=== PATIENT | male | born 1935 | race Caucasian/White ===

== ENCOUNTER 2017-12-12 05:59 | Day surgery (SDC) | payer MEDICARE, OTHER ==
--- NOTE | 2017-12-09 20:37 | HP ---
CC: Dr. Chisholm; Dr. Lawrence * ADMITTING HISTORY AND PHYSICAL: DATE OF ADMISSION: 12/12/17 ADMITTING DIAGNOSES: 1. Gross hematuria. 2. Bladder tumor. PLANNED PROCEDURE: Transurethral resection of bladder tumor and left stent insertion. SURGEON: Dr. Schuster. HISTORY OF PRESENT ILLNESS: Korey Dubois is an 82-year-old former smoker, who was evaluated for recurrent episodes of gross painless hematuria. Cystoscopy in my office revealed a large papillary tumor with an appearance consistent with superficial transitional cell carcinoma located in the bladder above the left ureteral orifice. CT urogram revealed no evidence of obstruction or involvement of the upper tracts and he is now being brought in for transurethral resection and temporary left stent insertion. PAST MEDICAL HISTORY: Significant for COPD and hypertension. PAST SURGICAL HISTORY: Significant for: 1. Appendectomy. 2. Bowel resection on 2 separate occasions for small bowel obstruction. 3. Surgery for diverticular abscess. 4. Left lung lower lobe resection for bronchiectasis. 5. Mastoidectomy. MEDICATIONS: On admission, include: 1. Aspirin 325 mg once a day. 2. Zestril 10 mg a day. 3. Hydrochlorothiazide 50 mg a day. 4. Pulmicort inhaler as needed. ALLERGIES AND INTOLERANCES: PENICILLIN and SULFA, and CHLORAMPHENICOL. SOCIAL HISTORY: Smoking history, he is a former smoker who quit in 1971 with a 40- to 89-[id number] smoking history prior to that. REVIEW OF SYSTEMS: He is otherwise in reasonably good health. There is no history of diabetes mellitus and he denies any chest pain. PHYSICAL EXAMINATION GENERAL: Reveals a pleasant elderly gentleman. VITAL SIGNS: Blood pressure is 126/78, pulse 64 per minute, oxygen saturation 98% on room air. LUNGS: Clear bilaterally. CARDIOVASCULAR: Regular rate and rhythm. S1, S2. ABDOMEN: Soft without masses. IMPRESSION: An 82-year-old former smoker with a large superficial-appearing bladder tumor causing recurrent episodes of gross hematuria. PLAN: Transurethral resection of bladder tumor and left stent insertion. [id number]/[facility] #: [id number] MTDD
[~2017-12-12 05:59] MED LIST: Buffered Lidocaine 0.9% SYRIN* 5 ML/SYR SYRINGE INTRADERM ONE; DiMENhydriNATE IV* 50 MG/ML VIAL IV PUSH PRN; Morphine INJ* 2 MG/ML 1 ML SYRINGE (TWO MG - NEW SYRINGE VERSION) IV PRN; Naloxone* 0.4 MG/ML 1 ML VIAL IV PRN; Ondansetron TAB* 4 MG PO ONE; PROCHLORPERAZINE INJ 5 MG/ML 2 ML VIAL IV PRN; fentaNYL* 50 MCG/ML 2 ML VIAL (100 MCG VIAL) IV PRN; oxyCODONE/Acetamin 5/325 MG* TAB PO PRN
[2017-12-12] MEDS ORDERED: Famotidine IV* 10 MG/ML 2 ML (20 mg) IV ONE (06:00)
[2017-12-12] MEDS ORDERED: Dexamethasone TAB* 4 MG PO ONE (06:00)
[2017-12-12] MEDS ORDERED: Ondansetron ODT TAB* 4 MG ONE (06:33)
[2017-12-12] MEDS ORDERED: Famotidine IV* 10 MG/ML 2 ML (20 mg) ONE (06:33)
[2017-12-12] MEDS ORDERED: Dexamethasone TAB* 4 MG ONE (06:33)
[2017-12-12] MEDS ORDERED: Levofloxacin 500 MG IVPREMIX(* 500 MG/100 ML BAG IVPB ONE (06:34)
[2017-12-12] MEDS ORDERED: Iohexol 180 (CONTRAST) 10 ML SDV IV ONE (07:06)
[2017-12-12] MEDS ORDERED: Midazolam* 1 MG/ML 5 ML VIAL (5 MG) ONE (07:26)
[2017-12-12] MEDS ORDERED: fentaNYL* 50 MCG/ML 2 ML VIAL (100 MCG VIAL) ONE ×2 (07:26→09:37)
[2017-12-12] MEDS ORDERED: KETAMINE HCL* 50 MG/ML 10 ML VIAL ONE (07:26)
[2017-12-12] MEDS ORDERED: Furosemide IV* 10 MG/ML 2 ML VIAL (20 MG) ONE (08:22)
[2017-12-12] MEDS ORDERED: Lidocaine 2% PF * 5 ML VIAL ONE (08:57)
[2017-12-12] MEDS ORDERED: Propofol* 10 MG/ML 20 ML BTL IV PUSH ONE (08:57)
[2017-12-12] MEDS ORDERED: Lidocaine 2% JELLY* 6 ML JELLY TOPICAL ONE (09:38)
--- NOTE | 2017-12-12 10:33 | RAD ---
CPT II Codes: G9500 Indication: Left ureteral stent placement. Fluoroscopic services provided for referring physician. 7 seconds of fluoroscopy time was used. 7 spot images demonstrates placement of a left ureteral stent. IMPRESSION: Fluoroscopic services provided for referring physician for left ureteral stent placement.
[2017-12-12 10:35] VITALS: BP 157/91
--- NOTE | 2017-12-13 00:46 | OP ---
CC: Dr. Warner Chisholm; Dr. Ricardo Schuster OPERATIVE REPORT: DATE OF OPERATION: 12/12/17. DATE OF : 33. SURGEON: Ricardo Schuster M.D. ANESTHESIOLOGIST: Dr. Ambriz. ANESTHESIA: Spinal. PRE-OP DIAGNOSES: 1. Gross hematuria. 2. Bladder cancer. POST-OP DIAGNOSES: 1. Gross hematuria. 2. Bladder cancer. OPERATIVE PROCEDURE: Cystoscopy, transurethral resection of large vascular bladder tumor (6 to 7 cm) , left retrograde pyelogram, and left stent insertion. COMPLICATIONS: None. OPERATIVE FINDINGS: Large vascular tumor occupying left lateral wall (appearance consistent with hig h-grade but superficial transitional cell carcinoma). STENT USED: 6-Australian stent, left ureter. POSTOPERATIVE CONDITION: Stable. ESTIMATED BLOOD LOSS: Approximately 100 to 150 mL. CATHETER: A 22-Australian Ulrich. INDICATIONS: Leonidas Dubois is an 82-year-old gentleman, who was evaluated for gross hematuria and noted to have a bladder tumor in the left lateral wall and close to the left side of the trigone of the bladder. DESCRIPTION OF PROCEDURE: After induction of spinal anesthesia, the patient was placed in dorsal lit hotomy position. Sequential compression devices were in place and functioning. Initial cystoscopy r evealed a normal-appearing urethra, a mild-to- moderately enlarged prostate. The bladder was examine d. There was a large tumor in the left lateral wall above and lateral to the left orifice with a lot of neovascularity adjacent to it. The tumor had an appearance of a high-grade but superficial trans itional cell carcinoma. In addition, there was a smaller satellite tumor just below the left orifice . The remainder of the bladder was unremarkable. Initially, left retrograde pyelogram was performed. There was no evidence of any persistent filling defects or obstruction, and a 6-Australian stent was introduced and positioned under fluoroscopy with goo d proximal and distal positioning obtained. Next, the resectoscope was introduced. The superficial part of the tumor was resected and sent for h istopathology. Deeper part of the tumor was carefully resected taking care not to perforate the bladder. At the end of the procedure, there was no remaining tumor and there was no evidence of bladder perforation and hemostasis appeared satisfactory. The refractive tissue was removed from the bladder using the Shar evacuator. A Ulrich catheter of 22-Australian was placed for bladder drainage. The patient tolerated th e procedure satisfactorily and was transferred back to recovery area in stable condition. [id number]/[facility] #: [id number]
== END 2017-12-12 11:18 | disposition home or self-care (01) ==
LOC: EDBD → OR 05:59 → MERGE 07:30 → OR 11:18
PROVIDERS: ATTEND Urology
DX: C67.2 Malignant neoplasm of lateral wall of bladder (principal); R31.0 Gross hematuria; Z87.891 Personal history of nicotine dependence; J44.9 Chronic obstructive pulmonary disease, unspecified; I10 Essential (primary) hypertension
CPT/HCPCS: 74420; 88305; A9270-GY; C1876; J1940; J1956; J2250; J2704; J3010; J8540

== ENCOUNTER → 2018-06-19 06:09 | Day surgery (SDC) | payer MEDICARE, OTHER ==
--- NOTE | 2018-06-08 07:32 | HP ---
CC: Dr. Mares; Dr. Lawrence * ADMITTING HISTORY AND PHYSICAL: DATE OF ADMISSION: 06/19/18 ADMITTING DIAGNOSIS: Bladder cancer. PLANNED PROCEDURE: Transurethral resection of bladder tumors and right stent insertion. SURGEON: Dr. Schuster. HISTORY OF PRESENT ILLNESS: Leonidas Dubois is an 82-year-old gentleman who had originally been evaluated and treated in December of 2017 for high-grade superficial bladder cancer. He had undergone transurethral resection followed by intravesical BCG treatments. Recent cystoscopy revealed multiple recurrent tumors, this time on the right side of the bladder. They all appear superficial on visual examination. PAST MEDICAL HISTORY: Significant for: 1. Superficial high-grade bladder cancer. 2. Hypertension. 3. COPD. PAST SURGICAL HISTORY: Significant for left lung lower lobe resection for bronchiectasis, mastoidectomy, multiple bowel surgeries, appendectomy, and transurethral resection of bladder tumor in December of 2017. MEDICATIONS ON ADMISSION: 1. Zestril 10 mg daily. 2. Aspirin 325 mg daily. 3. Hydrochlorothiazide 50 mg daily. 4. Pulmicort inhaler p.r.n. ALLERGIES: PENICILLIN, SULFA, and CHLORAMPHENICOL. SOCIAL HISTORY: Smoking History: He has a 42 to 50-pack year smoking history and he quit over 30 years ago. PHYSICAL EXAMINATION GENERAL: Reveals a pleasant elderly gentleman. VITAL SIGNS: Blood pressure is 140/82, pulse 66 per minute, oxygen saturation 98% on room air. LUNGS: Clear bilaterally. CARDIOVASCULAR EXAM: Regular rate and rhythm. S1, S2. ABDOMEN: Soft without masses. IMPRESSION: A 82-year-old former smoker with recurrent superficial bladder cancer. PLAN/RECOMMENDATIONS: Planned procedure is transurethral resection of bladder tumors and right stent insertion. [id number]/[facility] #: [id number] MTDD
[~2018-06-19 06:09] MED LIST changes: -Buffered Lidocaine 0.9% SYRIN* 5 ML/SYR SYRINGE INTRADERM ONE; +Buffered Lidocaine 1% SYRIN* 1 ML/SYRINGE INTRADERM ONE; -DiMENhydriNATE IV* 50 MG/ML VIAL IV PUSH PRN; +Furosemide IV* 10 MG/ML 2 ML VIAL (20 MG) ONE; +Iohexol 180 (CONTRAST) 10 ML SDV IV ONE; +Lactated Ringers 1000 ML Bag* 1,000 ML IV SCH; +Levofloxacin 500 MG IVPREMIX(* 500 MG/100 ML BAG IVPB ONE; +Lidocaine 2% JELLY* 6 ML JELLY TOPICAL ONE; +Midazolam* 1 MG/ML 5 ML VIAL (5 MG) ONE; -Morphine INJ* 2 MG/ML 1 ML SYRINGE (TWO MG - NEW SYRINGE VERSION) IV PRN; +Ondansetron INJ* 2 MG/ML VIAL IV PRN; -Ondansetron TAB* 4 MG PO ONE; -PROCHLORPERAZINE INJ 5 MG/ML 2 ML VIAL IV PRN; -fentaNYL* 50 MCG/ML 2 ML VIAL (100 MCG VIAL) IV PRN; +fentaNYL* 50 MCG/ML 2 ML VIAL (100 MCG VIAL) ONE; +oxyCODONE/Acetamin 5/325 MG* TAB ONE
[2018-06-19] MEDS: fentaNYL* 50 MCG/ML 2 ML VIAL (100 MCG VIAL) IV PRN ×4 (09:53→10:25)
--- NOTE | 2018-06-19 11:55 | OP ---
CC: Dr. Nadira Mares; Dr. Ena Lawrence * DATE OF OPERATION: 06/19/18 - [facility] DATE OF : 33 SURGEON: Ricardo Schuster MD ANESTHESIOLOGIST: Dr. Sorenson. ANESTHESIA: Spinal. PRE-OP DIAGNOSIS: Bladder cancer. POST-OP DIAGNOSIS: Bladder cancer. OPERATIVE PROCEDURE: 1. Cystoscopy, transurethral resection and fulguration of multiple bladder tumors (aggregate 5-6 cm). 2. Right retrograde and right stent insertion. COMPLICATIONS: None. STENT USED: A 7-Latvian stent, right ureter. BLOOD LOSS: Less than 25 cc. CATHETER: A 22-Latvian Ulrich. INDICATIONS: Leonidas Dubois is an 82-year-old former smoker with a history of superficial high-grade bladder cancer. He recently underwent surveillance cystoscopy and was noted to have recurrent bladder tumors, some of which are located close to but not obstructing the right orifice. OPERATIVE FINDINGS: Multiple papillary, superficial-appearing transitional cell tumors located adjacent to right orifice and posterior bladder wall and one located at the left side of the bladder neck. POSTOPERATIVE CONDITION: Stable. DESCRIPTION OF PROCEDURE: After induction of spinal anesthesia, the patient was placed in dorsal lithotomy position. Sequential compression devices were in place and functioning. Initial cystoscopy revealed mild stricture in the bulbar urethra, mildly enlarged prostate. The bladder was entered and examined. There were multiple papillary tumors, all with an appearance consistent with superficial transitional cell carcinoma. There was a small cluster adjacent to the right orifice, some additional ones in the posterior bladder wall, and one in the left side of the bladder neck. A guidewire was introduced into the right ureter and kept in place throughout the remainder of the resection until the stent was placed at the end of the procedure. Represented biopsies were obtained and sent for histopathology. Next, a resectoscope was introduced and all of the visible tumors were resected. Hemostasis was secured using the coagulating current. Once this was done, 7- Latvian stent was introduced over the previously placed guidewire in order to reduce the chances of transient right ureteral obstruction secondary to edema. Under fluoroscopic guidance, good proximal and distal positioning was observed. A 22-Latvian Ulrich was placed for temporary bladder drainage. The patient tolerated the procedure satisfactorily and was transferred back to the recovery area in stable condition. [id number]/[facility] #: [id number] [facility]
[2018-06-19 13:15] VITALS: BP 156/86
== END | disposition home or self-care (01) ==
LOC: OR 06:09
PROVIDERS: ATTEND Urology
DX: C67.9 Malignant neoplasm of bladder, unspecified (principal); J44.9 Chronic obstructive pulmonary disease, unspecified; I10 Essential (primary) hypertension; Z88.0 Allergy status to penicillin; Z88.2 Allergy status to sulfonamides; Z87.891 Personal history of nicotine dependence
CPT/HCPCS: 74420; 88307; A9270-GY; C1876; J1940; J1956; J2250; J3010

== ENCOUNTER 2018-07-26 15:18 | Emergency (ER) | payer MEDICARE, OTHER ==
--- NOTE | 2018-07-26 15:47 | ED ---
Throat Pain/Nasal Congestion - HPI Summary HPI Summary: An 82 y/o M presents to ED with c/o sudden-onset left epistaxis onset approx 15 minutes [employer] IN[employer] which has spontaneously resolved. Onset of bleeding was atraumatic. He takes daily aspirin. PMHx: current bladder CA. - History of Current Complaint Chief Complaint: EDEpistaxis Time Seen by Provider: 07/26/18 15:44 Hx Obtained From: Patient Onset/Duration: Sudden Onset, Lasting Minutes, Resolved Severity: Moderate - Allergies/Home Medications Allergies/Adverse Reactions: Allergies Allergy/AdvReac Type Severity Reaction Status Date / Time chloramphenicol Allergy Rash And Verified 07/26/18 15:35 Itching Penicillins Allergy Rash And Verified 07/26/18 15:35 Itching Sulfa (Sulfonamide Allergy Rash And Verified 07/26/18 15:35 Antibiotics) Itching Home Medications: Home Medications Aspirin TAB* [Aspirin 325 MG TAB*] 325 mg PO DAILY 07/26/18 [History Confirmed 07/26/18] PMH/Surg Hx/FS Hx/Imm Hx Previously Healthy: No Endocrine/Hematology History: Denies: Hx Diabetes Cardiovascular History: Reports: Hx Hypertension - sees Dr. Gaitan Respiratory History: Reports: Hx Asthma GI History: Reports: Hx Irritable Bowel History: Reports: Other Problems/Disorders - BLADDER TUMOR Denies: Hx Renal Disease Musculoskeletal History: Reports: Hx Arthritis - minor Denies: Hx Scoliosis Sensory History: Reports: Hx Cataracts, Hx Contacts or Glasses - reading Denies: Hx Hearing Aid Opthamlomology History: Reports: Hx Cataracts, Hx Contacts or Glasses - reading Neurological History: Denies: Hx Headaches, Other Neuro Impairments/Disorders - Cancer History Cancer Type, Location and Year: BLADDER CA Hx Chemotherapy: No - Surgical History Surgery Procedure, Year, and Place: PART OF UPPER/ BOTTOM OF LOBE OF LEFT LUNG REMOVED 1971; APPENDECTOMY WITH ADHESIONS TO LARGE INTESTINE REMOVED 1938; 18-23 " OF SMALL INTESTINE REMOVED 1982; CHOLECYSTECTOMY 2004; PART OF COLON REMOVED DUE TO PELVIC ABSCESS 2006. 2018 BLADDER SURGERY [facility] Hx Anesthesia Reactions: No Infectious Disease History: No Infectious Disease History: Denies: Traveled Outside the [place] in Last 30 Days - Family History Known Family History: Positive: Other - neg: anaesthesia reaction - Social History Occupation: Retired Lives: With Family Alcohol Use: Occasionally Hx Substance Use: No Substance Use Type: Reports: None Hx Tobacco Use: Yes Smoking Status (MU): Former Smoker Amount Used/How Often: 1 ppd for 25 years Have You Smoked in the Last Year: No Review of Systems Negative: Fever Positive: Epistaxis All Other Systems Reviewed And Are Negative: Yes Physical Exam - Summary Physical Exam Summary: Appearance: The patient is well-nourished in no acute distress and in no acute pain. Skin: The skin is warm and dry and skin color reflects adequate perfusion. HEENT: The head is normocephalic and atraumatic. The pupils are equal and reactive. The conjunctivae are clear and without drainage. Nares: There is a fresh clot at Kiesselbach's plexus on L. Mouth reveals moist mucous membranes and the throat is without erythema and exudate. The external ears are intact. The ear canals are patent and without drainage. The tympanic membranes are intact. Neck: the neck is supple with full range of motion and non-tender. There are no carotid bruits. There is no neck vein distension. Respiratory: Chest is non-tender. Lungs are clear to auscultation and breath sounds are symmetrical and equal. Cardiovascular: Heart is regular rate and rhythm. There is no murmur or rub auscultated. There is no peripheral edema and pulses are symmetrical and equal. Abdomen: The abdomen is soft and non-tender. There are normal bowel sounds heard in all four quadrants and there is no organomegaly palpated. Musculoskeletal: There is no back tenderness noted. Extremities are non-tender with full range of motion. There is good capillary refill. There is no peripheral edema or calf tenderness elicited. Neurological: Patient is alert and oriented to person, place and time. The patient has symmetrical motor strength in all four extremities. Cranial nerves are grossly intact. Deep tendon reflexes are symmetrical and equal in all four extremities. Psychiatric: The patient has an appropriate affect and does not exhibit any anxiety or depression. Triage Information Reviewed: Yes Vital Signs On Initial Exam: Initial Vitals Temp Pulse Resp BP Pulse Ox 97.9 F 70 22 161/85 98 07/26/18 15:19 07/26/18 15:19 07/26/18 15:19 07/26/18 15:19 07/26/18 15:19 Vital Signs Reviewed: Yes Diagnostics - Vital Signs Vital Signs Temp Pulse Resp BP Pulse Ox 07/26/18 15: 97.9 F 70 22 161/85 98 - Laboratory Lab Statement: Any lab studies that have been ordered have been reviewed, and results considered in the medical decision making process. EENT Course/Dx - Course Course Of Treatment: Mr. Dubois had a short episode of epistaxis from the left side of his nose. He was noted here to have fresh clot at Kesselbach's plexus. I gave him the option of cleaning it out and cauterizing it or leaving it alone. The concern being that he knocked the clot off he may start bleeding again and we may have difficulty controlling it versus if he goes home without doing anything he may and up rebleeding and having to re-present. He chose to go home and he was given a clip in case he would start bleeding again to try using first. - Diagnoses Provider Diagnoses: Epistaxis Discharge - Sign-Out/Discharge Documenting (check all that apply): Patient Departure - DC Patient Received Moderate/Deep Sedation with Procedure: No - Discharge Plan Condition: Stable Disposition: HOME Patient Education Materials: Nosebleed (ED) Referrals: Nadira Mares MD [Primary Care Provider] - 3 Days Additional Instructions: Please return to the ED if you experience new or worsening symptoms. Follow up with your primary care provider in 2-3 days. - Billing Disposition and Condition Condition: STABLE Disposition: Home - Attestation Statements Document Initiated by Veronika: Yes Documenting Scribe: Valdemar Ndiaye Provider For Whom Courtneyibe is Documenting (Include Credential): Dr. Alexandro Chamorro MD Scribe Attestation: I, courtney Augustinibed for Dr. Alexandro Chamorro MD on 07/26/18 at 2121. Scribe Documentation Reviewed: Yes Provider Attestation: The documentation as recorded by the Valdemar stewart accurately reflects the service I personally performed and the decisions made by me, Dr. Alexandro Chamorro MD Status of Scribe Document: Viewed
[2018-07-26 16:14] VITALS: BP 120/73
== END 2018-07-26 16:13 | disposition home or self-care (01) ==
LOC: ED 15:18
DX: R04.0 Epistaxis (principal); I10 Essential (primary) hypertension; J45.909 Unspecified asthma, uncomplicated; M19.90 Unspecified osteoarthritis, unspecified site; Z79.82 Long term (current) use of aspirin; Z88.0 Allergy status to penicillin; Z88.2 Allergy status to sulfonamides; Z88.8 Allergy status to other drugs, medicaments and biological substances; Z85.51 Personal history of malignant neoplasm of bladder; Z87.891 Personal history of nicotine dependence
CPT/HCPCS: 99282

== ENCOUNTER 2018-10-19 05:34 | Day surgery (SDC) | payer MEDICARE, OTHER ==
--- NOTE | 2018-10-13 19:54 | HP ---
CC: Dr. Mares; Dr. Lawrence; Dr. Gaitan * ADMITTING HISTORY AND PHYSICAL: DATE OF ADMISSION: 10/19/18 ADMITTING DIAGNOSIS: Recurrent bladder cancer. PLANNED PROCEDURE: Transurethral resection of bladder tumor. SURGEON: Dr. Schuster. ADMITTING HISTORY AND PHYSICAL: Leonidas Dubois is an 83-year-old former smoker who I had originally evaluated in November 2017 for gross hematuria, and at that time, he had been noted to have a large papillary superficial bladder tumor on the left side of the bladder. A CT urogram had been obtained at that time, which showed normal upper tract and he had undergone transurethral resection of the bladder tumor followed by intravesical BCG treatments. He then underwent another transurethral resection in June 2018 for the recurrent tumor and recently underwent cystoscopy which revealed a 3 to 4 cm tumor in the right lateral wall of the bladder, which also appears visually consistent with a superficial transitional cell carcinoma. PAST MEDICAL HISTORY: Significant for: 1. COPD. 2. Hypertension. MEDICATIONS ON ADMISSION: 1. Pulmicort 2 puffs twice daily inhaler. 2. Hydrochlorothiazide 50 mg daily. 3. Zestril 10 mg daily. 4. Ventolin inhaler 2 puffs every 6 hours as needed. ALLERGIES AND INTOLERANCES: PENICILLIN (rash), SULFA (rash), CHLORAMPHENICOL, AZITHROMYCIN. PAST SURGICAL HISTORY: Significant for transurethral resection of bladder tumor done through separate occasions, appendectomy, bowel resection for small bowel obstruction, surgery for diverticular abscess and left lung lower lobe resection for bronchiectasis and also a mastoidectomy. SOCIAL HISTORY: Smoking history: He is a former smoker who quit in 1971 with about 40- to 50-pack year smoking history prior to that. FAMILY HISTORY: Negative for bladder cancer. REVIEW OF SYSTEMS: He is otherwise in fairly good health. He denies any chest pain or shortness of breath and is fairly physically active. Blood pressure is 102/62, pulse 72 per minute and regular, temperature 97.2, oxygen saturation 99 % on room air. Cardiovascular Exam: Regular rate and rhythm, S1, S2. Lungs are clear bilaterally. Abdomen is soft without masses. IMPRESSION: An 83-year-old former smoker with a recurrent bladder tumor. Planned procedure is cystoscopy, transurethral resection of bladder tumor. [id number]/[facility] #: [id number] [facility]
[~2018-10-19 05:34] MED LIST changes: -Furosemide IV* 10 MG/ML 2 ML VIAL (20 MG) ONE; -Iohexol 180 (CONTRAST) 10 ML SDV IV ONE; -Lactated Ringers 1000 ML Bag* 1,000 ML IV SCH; -Levofloxacin 500 MG IVPREMIX(* 500 MG/100 ML BAG IVPB ONE; -Lidocaine 2% JELLY* 6 ML JELLY TOPICAL ONE; -Midazolam* 1 MG/ML 5 ML VIAL (5 MG) ONE; -Naloxone* 0.4 MG/ML 1 ML VIAL IV PRN; -Ondansetron INJ* 2 MG/ML VIAL IV PRN; -fentaNYL* 50 MCG/ML 2 ML VIAL (100 MCG VIAL) ONE; -oxyCODONE/Acetamin 5/325 MG* TAB ONE; -oxyCODONE/Acetamin 5/325 MG* TAB PO PRN
[2018-10-19] MEDS ORDERED: Lactated Ringers 1000 ML Bag* 1,000 ML IV SCH ×2 (06:00→10:00)
[2018-10-19] MEDS ORDERED: Acetaminophen TAB* 325 MG PO ONE (06:00)
[2018-10-19] MEDS ORDERED: Acetaminophen TAB* 325 MG ONE (06:04)
[2018-10-19] MEDS ORDERED: Levofloxacin 500 MG IVPREMIX(* 500 MG/100 ML BAG IVPB ONE (06:04)
[2018-10-19] MEDS ORDERED: Buffered Lidocaine 1% SYRIN* 1 ML/SYRINGE INTRADERM ONE (06:04)
[2018-10-19] MEDS ORDERED: Famotidine IV* 10 MG/ML 2 ML (20 mg) ONE (07:17)
[2018-10-19] MEDS ORDERED: Midazolam* 1 MG/ML 2 ML VIAL (2 MG) ONE (07:22)
[2018-10-19] MEDS ORDERED: fentaNYL* 50 MCG/ML 2 ML VIAL (100 MCG VIAL) ONE (07:22)
[2018-10-19] MEDS ORDERED: Dexamethasone IV* 4 MG/ML 1 ML (4 MG) ONE (07:47)
[2018-10-19] MEDS ORDERED: EPHEDrine (Pressors)* 50 MG/ML VIAL ONE (07:47)
[2018-10-19] MEDS ORDERED: Propofol* 10 MG/ML 20 ML BTL ONE (07:47)
[2018-10-19] MEDS ORDERED: Levalbuterol 0.63MG/3ML NEB* UNIT OF USE INH PRN (08:03)
[2018-10-19] MEDS ORDERED: Ondansetron INJ* 2 MG/ML VIAL IV PRN (08:03)
[2018-10-19] MEDS ORDERED: diPHENhydraMINE IV* 50 MG/ML 1 ml VIAL (BENADRYL) IV PRN (08:03)
[2018-10-19] MEDS ORDERED: DiMENhydriNATE IV* 50 MG/ML VIAL IV PUSH PRN (08:03)
[2018-10-19] MEDS ORDERED: HYDROcodone/ACETAMIN 5-325 MG* 1 TAB PO PRN (08:03)
[2018-10-19] MEDS ORDERED: fentaNYL* 50 MCG/ML 2 ML VIAL (100 MCG VIAL) IV PRN (08:03)
[2018-10-19] MEDS ORDERED: Naloxone* 0.4 MG/ML 1 ML VIAL IV PRN (08:03)
[2018-10-19] MEDS ORDERED: Furosemide IV* 10 MG/ML 2 ML VIAL (20 MG) ONE (08:12)
[2018-10-19] MEDS ORDERED: mitoMYcin PWD* 40 MG in Sterile Water for Inj* 40 ML IRRIGATION ONE (10:00)
--- NOTE | 2018-10-19 11:43 | OP ---
CC: Dr. Nadira Mares * DATE OF OPERATION: 10/19/18 - [facility] DATE OF : 33 SURGEON: Dr. Schuster. ANESTHESIOLOGIST: Dr. Luciano. ANESTHESIA: General. PRE-OP DIAGNOSIS: Bladder tumor. POST-OP DIAGNOSIS: Bladder tumor. OPERATIVE PROCEDURE: Cystoscopy, transurethral resection and fulguration of bladder tumor (5 to 6 cm aggregate). COMPLICATIONS: None. BLOOD LOSS: Less than 25 cc. INDICATIONS: Korey Dubois is an 83-year-old gentleman with a history of recurrent superficial bladder cancer. FINDINGS: Larger superficial bladder tumor arising from junction of right lateral and anterior wall of urinary bladder (appearance consistent with superficial transitional cell carcinoma). DESCRIPTION OF PROCEDURE: After induction of general anesthesia, the patient was placed in dorsal lithotomy position, sequential compression devices were in place and functioning. Initial evaluation revealed a normal appearing urethra, a moderately enlarged prostate. The bladder was carefully examined. There were some inflammatory changes noted at the site of previous resection, but at the junction of the right lateral wall and anterior wall of bladder, there was a fairly large papillary transitional cell tumor noted. Using the resectoscope , the tumor was completely resected down to its bed and the specimen was sent for histopathology. Hemostasis was secured using the coagulating current. At the end of the procedure, there was no remaining visible tumor and no evidence of bladder perforation. A 22-Mongolian Ulrich was placed for bladder drainage. The patient tolerated the procedure satisfactorily and was transferred back to the recovery area in stable condition. [id number]/[facility] #: [id number] MTDD
[2018-10-19 12:44] VITALS: BP 136/73
[2018-10-19] MEDS ORDERED: Lidocaine 2% JELLY* 6 ML JELLY TOPICAL SCH (14:00)
== END 2018-10-19 12:51 | disposition home or self-care (01) ==
LOC: OR 05:34
PROVIDERS: ATTEND Urology
DX: C67.2 Malignant neoplasm of lateral wall of bladder (principal); J44.9 Chronic obstructive pulmonary disease, unspecified; I10 Essential (primary) hypertension; Z87.891 Personal history of nicotine dependence; Z88.0 Allergy status to penicillin; Z88.8 Allergy status to other drugs, medicaments and biological substances
CPT/HCPCS: 88305; A9270-GY; J1100; J1940; J1956; J2250; J2704; J3010; J9280

== ENCOUNTER 2019-07-31 09:12 | Emergency (ER) | payer MEDICARE, OTHER ==
--- NOTE | 2019-07-31 09:43 | ED ---
GI/ HPI - HPI Summary HPI Summary: Pt. is an 84 y.o male who presents to the ER for hematuria that started yesterday. Pt. notes hx of bladder cancer. He follows with Dr. Schuster, urologist. Pt. denies fever, N/V, abd. pain. Pt. notes he feels he is fully emptying his bladder. Pt. spoke with Dr. Schuster who instructed pt. to come the ER for further testing. Pt. is not anticoagulated. Sxs are moderate in severity. No current modifying factors. - History of Current Complaint Chief Complaint: EDUrogenitalProblems Time Seen by Provider: 07/31/19 09:23 Stated Complaint: BLOOD IN URINE PER PT Hx Obtained From: Patient Pain Intensity: 0 - Allergy/Home Medications Allergies/Adverse Reactions: Allergies Allergy/AdvReac Type Severity Reaction Status Date / Time Penicillins Allergy Severe Rash And Verified 07/31/19 09:19 Itching Sulfa (Sulfonamide Allergy Severe Rash And Verified 07/31/19 09:19 Antibiotics) Itching chloramphenicol Allergy Intermediate Rash And Verified 07/31/19 09:19 Itching azithromycin Allergy GI Upset Verified 07/31/19 09:19 Home Medications: Home Medications Budesonide Flexhaler 180 (NF) [Pulmicort Flexhaler 180 mcg/act (NF)] 1 puff INH BID PRN 12/05/17 [History Confirmed 07/31/19] Hydrochlorothiazide TAB* [Hydrodiuril TAB*] 50 mg PO BEDTIME 12/05/17 [History Confirmed 07/31/19] Lisinopril [Zestril] 10 mg PO BEDTIME 12/05/17 [History Confirmed 07/31/19] Tamsulosin HCl 0.4 mg PO BEDTIME 06/18/18 [History Confirmed 07/31/19] Aspirin TAB* [Aspirin 325 MG TAB*] 325 mg PO DAILY 07/26/18 [History Confirmed 07/31/19] Metronidazole (TOPICAL)(NF) [Metrocream (NF)] 1 applic TOPICAL BID PRN 10/12/18 [History Confirmed 07/31/19] Wheat Dextrin [Benefiber On The Go] 1 pow PO BID 10/12/18 [History Confirmed ] Albuterol Sulfate [Ventolin Hfa] 1 puff INH DAILY 07/31/19 [History Confirmed ] Budesonide Flexhaler 90 (NF) [Pulmicort Flexhaler 90 mcg/act (NF)] 1 puff INH DAILY 07/31/19 [History Confirmed 07/31/19] PMH/Surg Hx/FS Hx/Imm Hx Previously Healthy: Yes Endocrine/Hematology History: Denies: Hx Diabetes Cardiovascular History: Reports: Hx Hypertension - sees Dr. Gaitan Respiratory History: Reports: Hx Asthma - r/t bronchiectasis GI History: Reports: Hx Irritable Bowel History: Reports: Other Problems/Disorders - BLADDER TUMOR Denies: Hx Renal Disease Musculoskeletal History: Reports: Hx Arthritis - minor Denies: Hx Scoliosis Sensory History: Reports: Hx Cataracts, Hx Contacts or Glasses - reading Denies: Hx Hearing Aid Opthamlomology History: Reports: Hx Cataracts, Hx Contacts or Glasses - reading Neurological History: Denies: Hx Headaches, Other Neuro Impairments/Disorders - Cancer History Cancer Type, Location and Year: BLADDER CA Hx Chemotherapy: No - Surgical History Surgery Procedure, Year, and Place: PART OF UPPER/ BOTTOM OF LOBE OF LEFT LUNG REMOVED 1971; APPENDECTOMY WITH ADHESIONS TO LARGE INTESTINE REMOVED 1938; 18-23 " OF SMALL INTESTINE REMOVED 1982; CHOLECYSTECTOMY 2004; PART OF COLON REMOVED DUE TO PELVIC ABSCESS 2006. 2018 BLADDER SURGERY CMCx2 Hx Anesthesia Reactions: No Infectious Disease History: No Infectious Disease History: Denies: Traveled Outside the [place] in Last 30 Days - Family History Known Family History: Positive: Other - neg: anaesthesia reaction, Non- Contributory - Social History Occupation: Retired Lives: With Family Alcohol Use: None Hx Substance Use: No Substance Use Type: Reports: None Hx Tobacco Use: Yes Smoking Status (MU): Former Smoker Amount Used/How Often: 1 ppd for 25 years Have You Smoked in the Last Year: No Review of Systems Constitutional: Negative Negative: Fever, Chills Cardiovascular: Negative Respiratory: Negative Gastrointestinal: Negative Positive: hematuria. Negative: burning All Other Systems Reviewed And Are Negative: Yes Physical Exam Triage Information Reviewed: Yes Vital Signs On Initial Exam: Initial Vitals Temp Pulse Resp BP Pulse Ox 97.6 F 58 16 162/81 99 07/31/19 09:14 07/31/19 09:14 07/31/19 09:14 07/31/19 09:14 07/31/19 09:14 Vital Signs Reviewed: Yes Appearance: Positive: Well-Appearing - Pt. lying in bed in NAD. Skin: Positive: Warm, Dry Head/Face: Positive: Normal Head/Face Inspection Eyes: Positive: Normal, EOMI Neck: Positive: Supple Respiratory/Lung Sounds: Positive: Clear to Auscultation, Breath Sounds Present Cardiovascular: Positive: Normal, RRR Abdomen Description: Positive: Nontender, Soft Musculoskeletal: Positive: Normal, Strength/ROM Intact Neurological: Positive: Normal, CN Intact II-III Psychiatric: Positive: Affect/Mood Appropriate Procedures - Sedation Patient Received Moderate/Deep Sedation with Procedure: No Diagnostics - Vital Signs Vital Signs Temp Pulse Resp BP Pulse Ox 07/31/19 09:14 97.6 F 58 16 162/81 99 - Laboratory Result Diagrams: 07/31/19 10:30 07/31/19 11:32 Lab Statement: Any lab studies that have been ordered have been reviewed, and results considered in the medical decision making process. GIGU Course/Dx - Course Course Of Treatment: Pt. presenting with hematuria. Labs show mild low CL and NA. U/A shows RBCs, negative for infection. CT per radiology: IMPRESSION: There is a filling defect in the upper pole calyx of the left kidney with no. hydronephrosis noted. This may represent a mass in the upper pole left renal collecting. system. Postoperative changes are noted in the pelvis just above the urinary bladder. No bladder. wall thickening is noted. Pt. examined in ED by Dr. Schuster. He would like pt. to have 5mg IV lasix and dc home to f.u with him in office on friday at 0900. Pt. will return to er for increased bleeding, fever, retention or if concerned. - Diagnoses Provider Diagnoses: Hematuria Discharge ED - Sign-Out/Discharge Documenting (check all that apply): Patient Departure - Discharge Plan Condition: Good Disposition: HOME Patient Education Materials: Hematuria (ED) Referrals: Nadira Mares MD [Primary Care Provider] - Ricardo Schuster MD [Medical Doctor] - Additional Instructions: Dr. Schuster will see you in his office on 08/02/2019, at 9:00am Increase fluids Return to ER if symptoms change or worsen - Billing Disposition and Condition Condition: GOOD Disposition: Home - Attestation Statements Provider Attestation: I have seen the patient with the PHILIPP and agree with the plan and documentation below except as noted: 84 -year-old male presenting or hematuria. Seen by Dr. Schuster. CT scan of possible renal mass. Follow-up with urology Darius Diaz MD
--- OUTSIDE RECORDS SUMMARY | 2019-07-31 09:46 | XMS REPORT | Continuity of Care Document ---
:1935 External Reference #:[id number] Author Name Abdon Duque MD (transmitted by agent of provider Rayne Stafford) Address [address] [address] [place] [address] Care Team Providers Name Role Phone Mark Chisholm MD - Hospitalist Care Team Information Business Systems Lead [phone] Problems Active Problems Provider Date History of cholecystectomy Mark Chisholm MD Onset: 07/30/2017 Rosacea Mark Chisholm MD Onset: 04/01/2016 Right bundle branch block Mark Chisholm MD Onset: 04/01/2016 Allergic rhinitis Ena Lawrence MD Onset: 03/12/2016 Irritable bowel syndrome Mark Chisholm MD Onset: 12/09/2014 Impaired fasting glycaemia Mark Chisholm MD Onset: 2008 Benign essential hypertension Mark Chisholm MD Onset: 2008 Bronchiolectasis Mark Chisholm MD Onset: 2008 Common variable agammaglobulinemia Abdon Duque MD Onset: 08/22/2017 Allergic contact dermatitis due to Abdon Duque MD Onset: 08/22/2017 other agents Allergic rhinitis due to pollen MANDEEP Du Onset: 2018 Social History Type Date Description Comments Sex Unknown Tobacco Use Start: Unknown End: Unknown Patient is a former smoker Quit 1971 Smoking Status Reviewed: 02/17/19 Patient is a former smoker Quit 1971 Allergies, Adverse Reactions, Alerts Active Allergies Reaction Severity Comments Date Chloramphenicol 03/10/2014 Azithromycin 05/16/2011 Penicillins 2008 Sulfa Antibiotics 11/26/2017 Medications Active Medications SIG Qnty Indications Ordering Date Provider Pulmicort Flexhaler 2 puffs twice 120units Mark Chisholm 03/24/2015 90mcg/Act daily Ziggy Peguero MD Aerosol Hydrochlorothiazide 1 by mouth 90tabs Mark Chisholm 10/27/2012 50mg every day Ziggy Peguero MD Tablets Zestril take 1 tablet 90tabs Mark Chisholm 10mg Tablets daily Ziggy Peguero MD Ventolin HFA Inhale 2 Puffs Unknown 108(90Base) Every 4 To 6 mcg/Act Aerosol Hours as Needed For Shortness Of Fabiola... Clobetasol Propionate Apply A Thin Unknown 0.05% Layer To Right Cream [place] Twice A Day For Up To 2 Weeks as Need Metronidazole Unknown 1% Gel Medications Administered in Office Medication SIG Qnty Indications Ordering Provider Date Allergy Injection 2 Or More Abdon Duque MD 07/14/2019 Injection Allergy Injection 2 Or More Abdon Duque MD 06/07/2019 Injection Allergy Injection 2 Or More Abdon Duque MD 05/03/2019 Injection Allergy Injection 2 Or More Abdon Duque MD 03/19/2019 Injection Allergy Injection 2 Or More Abdon Duque MD 02/17/2019 Injection Allergy Injection 2 Or More Abdon Duque MD 02/03/2019 Injection Allergy Injection 2 Or More Abdon Duque MD 01/20/2019 Injection Allergy Injection 2 Or More Abdon Duque MD 01/08/2019 Injection Allergy Injection 2 Or More Abdon Duque MD 12/23/2018 Injection Allergy Injection 2 Or More Abdon Duque MD 12/09/2018 Injection Allergy Injection 2 Or More Abdon Duque MD 11/25/2018 Injection Allergy Injection 2 Or More Abdon Duque MD 11/11/2018 Injection Allergy Injection 2 Or More Abdon Duque MD 11/11/2018 Injection Allergy Injection 2 Or More Abdon Duque MD 10/28/2018 Injection Allergy Injection 2 Or More Abdon Duque MD 10/07/2018 Injection Allergy Injection 2 Or More Abdon Duque MD 09/23/2018 Injection Allergy Injection 2 Or More Abdon Duque MD 09/09/2018 Injection Allergy Injection 2 Or More Abdon uDque MD 08/26/2018 Injection Allergy Injection 2 Or More Abdon Duque MD 08/12/2018 Injection Allergy Injection 2 Or More Abdon Duque MD 08/05/2018 Injection Allergy Injection 2 Or More Abdon Duque MD 07/29/2018 Injection Allergy Injection 2 Or More Abdon Duque MD 07/22/2018 Injection Allergy Injection 2 Or More Abdon Duque MD 07/15/2018 Injection Allergy Injection 2 Or More Abdon Duque MD 07/08/2018 Injection Allergy Injection 2 Or More Abdon Duque MD 07/03/2018 Injection Allergy Injection 2 Or More Abdon Duque MD 06/10/2018 Injection Allergy Injection 2 Or More Abdon Duque MD 06/05/2018 Injection Allergy Injection 2 Or More Abdon Duque MD 05/27/2018 Injection Allergy Injection 2 Or More Abdon Duque MD 05/20/2018 Injection Allergy Injection 2 Or More Abdon Duque MD 05/13/2018 Injection Allergy Injection 2 Or More Abdon Duque MD 05/06/2018 Injection Allergy Injection 2 Or More Abdon Duque MD 04/29/2018 Injection Allergy Injection 2 Or More Abdon Duque MD 04/22/2018 Injection Allergy Injection 2 Or More Abdon Duque MD 04/15/2018 Injection Allergy Injection 2 Or More Abdon Duque MD 04/08/2018 Injection Allergy Injection 2 Or More Abdon Duque MD 04/01/2018 Injection Allergy Injection 2 Or More Abdon Duque MD 03/25/2018 Injection Allergy Injection 2 Or More Abdon Duque MD 03/18/2018 Injection Allergy Injection 2 Or More Abdon Duque MD 03/04/2018 Injection Allergy Injection 2 Or More Abdon Duque MD 02/25/2018 Injection Allergy Injection 2 Or More Abdon Duque MD 02/18/2018 Injection Allergy Injection 2 Or More Abdon Duque MD 02/11/2018 Injection Allergy Injection 2 Or More bAdon Duque MD 02/04/2018 Injection Allergy Injection 2 Or More Abdon Duque MD 01/26/2018 Injection Immunizations CPT Code Status Date Vaccine Lot # 60834 Given 08/22/2017 Pneumococcal Vaccine 2Yrs Or Older [id number] 28898 Given 05/14/2017 Fluarix Quadrivalent, Preservative Free 0.5mL 62273 Given 04/01/2016 Influenza Virus Vaccine, Quadrivalent, Slit Virus, [place] Use 47438 Given 03/20/2015 Fluarix Quadrivalent, Preservative Free 0.5mL 30694 Given 11/08/2013 Pneumococcal Conjugate Vaccine 13 Valent For Intramuscular Use Q2037 Given 05/18/2013 Influenza Vaccine (Fluvirin) 3 Years Of Age Or Older Q2037 Given 03/12/2012 Influenza Vaccine (Fluvirin) 3 Years Of Age Or Older 10615 Given 03/12/2012 Zoster Shingles Vaccine For Subcutaneous Injection 23797 Given 06/12/2011 Tetanus, Diphtheria Toxoids/Acellular Pertussis Vaccine 7 Or > 76014 Given 06/12/2011 Tetanus, Diphtheria Toxoids/Acellular Pertussis Vaccine 7 Or > Q2038 Given 05/16/2011 Influenza Vaccine (Fluzone) Administered Age 3 And Older 59053 Given 01/31/2010 Influenza Virus Split 3 Yrs And Above For Intramuscular Use 60602 Given 05/16/2009 Influenza Vaccine, Pandemic Formulation, H1N1 28539 Given 02/25/2007 Pneumococcal Vaccine 2Yrs Or Older [id number] Vital Signs Date Vital Result Comment 02/17/2019 1:55pm BP Systolic 129 mmHg BP Diastolic 67 mmHg Height 63 inches 5'3" Weight 174.00 lb BMI (Body Mass Index) 30.8 kg/m2 Heart Rate 56 /min O2 % BldC Oximetry 98 % 11/26/2017 2:18pm BP Systolic 112 mmHg BP Diastolic 48 mmHg Height 63 inches 5'3" Weight 174.25 lb BMI (Body Mass Index) 30.9 kg/m2 Heart Rate 71 /min Respiratory Rate 18 /min Body Temperature 98.8 F O2 % BldC Oximetry 95 % Results Description No Information Available Procedures Date Code Description Status 07/14/2019 55609 Allergy Injection 2 Or More Completed 06/07/2019 63033 Allergy Injection 2 Or More Completed 05/03/2019 97089 Allergy Injection 2 Or More Completed 03/31/2019 72067 Allergy Antigens Single Or Multiple Completed 03/19/2019 31949 Allergy Injection 2 Or More Completed 02/17/2019 23536 Allergy Injection 2 Or More Completed 02/03/2019 30532 Allergy Injection 2 Or More Completed 01/20/2019 02552 Allergy Injection 2 Or More Completed Medical Devices Description No Information Available Encounters Type Date Location Provider Dx Diagnosis Office Visit 02/17/2019 Jayshree Bonilla J30.1 Allergic rhinitis due 2:30p CHRISS Vasquez-C to pollen J30.89 Other allergic rhinitis J47.9 Bronchiectasis, uncomplicated Assessments Date Code Description Provider 07/14/2019 J45.41 Moderate persistent asthma with Abdon Duque MD (acute) exacerbation 07/14/2019 J30.1 Allergic rhinitis due to pollen Abdon Duque MD 07/14/2019 J30.89 Other allergic rhinitis Abdon Duque MD 06/07/2019 J45.41 Moderate persistent asthma with Abdon Duque MD (acute) exacerbation 06/07/2019 J30.1 Allergic rhinitis due to pollen Abdon Duque MD 06/07/2019 J30.89 Other allergic rhinitis Abdon Duque MD 05/03/2019 J45.41 Moderate persistent asthma with Abdon Duque MD (acute) exacerbation 05/03/2019 J30.1 Allergic rhinitis due to pollen Abdon Duque MD 05/03/2019 J30.89 Other allergic rhinitis Abdon Duque MD 03/31/2019 J30.1 Allergic rhinitis due to pollen Abdon Duque MD 03/31/2019 J30.89 Other allergic rhinitis Abdon Duque MD 03/19/2019 J45.41 Moderate persistent asthma with Abdon Duque MD (acute) exacerbation 03/19/2019 J30.1 Allergic rhinitis due to pollen Abdon Duque MD 03/19/2019 J30.89 Other allergic rhinitis Abdon Duque MD 02/17/2019 J45.41 Moderate persistent asthma with Abdon Duque MD (acute) exacerbation 02/17/2019 J30.1 Allergic rhinitis due to pollen Angelica Vasuqez RPA -C 02/17/2019 J30.1 Allergic rhinitis due to pollen Abdon Duque MD 02/17/2019 J30.89 Other allergic rhinitis MANDEEP Du 02/17/2019 J30.89 Other allergic rhinitis Abdon Duque MD 02/17/2019 J47.9 Bronchiectasis, uncomplicated MANDEEP Du 02/03/2019 J45.41 Moderate persistent asthma with Abdon Duque MD (acute) exacerbation 02/03/2019 J30.1 Allergic rhinitis due to pollen Abdon Duque MD 02/03/2019 J30.89 Other allergic rhinitis Abdon Duque MD 01/20/2019 J45.41 Moderate persistent asthma with Abdon Duque MD (acute) exacerbation 01/20/2019 J30.1 Allergic rhinitis due to pollen Abdon Duque MD 01/20/2019 J30.89 Other allergic rhinitis Abdon Duque MD Plan of Treatment Future Appointment(s):07/28/2019 1:35 pm - Injection 1 at [id number]/17/2019 - Angelica Vasquez RPA-[id number] Allergic rhinitis due to pollenComments: Allergic rhinitis well controlled. Patient has had an excellent response to immunotherapy. Patient is no longer requiring use of daily allergy medications. Continuation of allergy injections is recommended.Follow up:1 year.J30.89 Other allergic [id number] Bronchiectasis, uncomplicatedComments:Patient with history of bronchiectasis. Immune evaluation was normal. Patient will continue follow-up with Dr. Stevens. Functional Status Description No Information Available Mental Status Description No Information Available Referrals Description No Information Available
--- OUTSIDE RECORDS SUMMARY | 2019-07-31 09:46 | XMS REPORT | Continuity of Care Document ---
:1935 External Reference #:[id number] Author Name Abdon Duque MD (transmitted by agent of provider Rayne Stafford) Address [address] [facility] [address] [place] [address] Care Team Providers Name Role Phone Mark Chisholm MD - Hospitalist Care Team Information Treatment Specialist Problems Active Problems Provider Date History of [...] 02/03/2019 Injection Allergy Injection 2 Or More Abodn Duque MD 01/20/2019 Injection Allergy Injection 2 [...] Injection 2 Or More Abdon Duque MD 08/26/2018 Injection Allergy Injection 2 Or [...] 02/11/2018 Injection Allergy Injection 2 Or More Abdon Duque MD 02/04/2018 Injection Allergy Injection 2 Or More Abdon Duque MD 01/26/2018 Injection Immunizations CPT Code Status Date Vaccine Lot # [id number] Given 08/22/2017 Pneumococcal Vaccine 2Yrs Or Older [id number] 82324 Given 05/14/2017 Fluarix Quadrivalent, Preservative Free 0.5mL 30758 Given 04/01/2016 Influenza Virus Vaccine, Quadrivalent, Slit Virus, [place] Use 68912 Given 03/20/2015 Fluarix Quadrivalent, Preservative Free 0.5mL 22826 Given 11/08/2013 Pneumococcal Conjugate Vaccine 13 Valent For Intramuscular Use Q2037 Given 05/18/2013 Influenza Vaccine (Fluvirin) 3 Years Of Age Or Older Q2037 Given 03/12/2012 Influenza Vaccine (Fluvirin) 3 Years Of Age Or Older 66914 Given 03/12/2012 Zoster Shingles Vaccine For Subcutaneous Injection 22285 Given 06/12/2011 Tetanus, Diphtheria Toxoids/Acellular Pertussis Vaccine 7 Or > 30794 Given 06/12/2011 Tetanus, Diphtheria Toxoids/Acellular Pertussis Vaccine 7 Or > Q2038 Given 05/16/2011 Influenza Vaccine (Fluzone) Administered Age 3 And Older 87243 Given 01/31/2010 Influenza Virus Split 3 Yrs And Above For Intramuscular Use 28712 Given 05/16/2009 Influenza Vaccine, Pandemic Formulation, H1N1 89624 Given 02/25/2007 Pneumococcal Vaccine 2Yrs Or Older [id number] Vital Signs Date Vital Result Comment 02/17/2019 [...] Available Procedures Date Code Description Status 07/14/2019 80219 Allergy Injection 2 Or More Completed 06/07/2019 26040 Allergy Injection 2 Or More Completed 05/03/2019 00595 Allergy Injection 2 Or More Completed 03/31/2019 65252 Allergy Antigens Single Or Multiple Completed 03/19/2019 54077 Allergy Injection 2 Or More Completed 02/17/2019 66760 Allergy Injection 2 Or More Completed 02/03/2019 23759 Allergy Injection 2 Or More Completed 01/20/2019 95383 Allergy Injection 2 Or More Completed Medical [...] J30.1 Allergic rhinitis due to pollen Angelica Vasquez RPA -C 02/17/2019 J30.1 Allergic rhinitis due [...] Appointment(s):07/28/2019 1:35 pm - Injection 1 at [id number]/17/2019 - Angelica Vasquez RPA-CJ30.1 Allergic rhinitis due to pollenComments: Allergic rhinitis well controlled. Patient has had an excellent response to immunotherapy. Patient is no longer requiring use of daily allergy medications. Continuation of allergy injections is recommended.Follow up:1 year.J30.89 Other allergic [id number] Bronchiectasis, uncomplicatedComments:Patient with history of bronchiectasis. Immune evaluation was normal. Patient will continue follow-up with Dr. Stevens. Functional Status Description No Information Available Mental Status Description No Information Available Referrals Description No Information Available
--- OUTSIDE RECORDS SUMMARY | 2019-07-31 09:46 | XMS REPORT | Continuity of Care Document ---
:1935 External Reference #:[id number] Author Name Injection 1 (transmitted by agent of provider Jessi Payan) Address [address] [facility] [facility] [facility], [address] [place] [address] Care Team Providers Name Role Phone Mark Chisholm MD - Hospitalist Care Team Information Business Process Engineer [phone] Problems Active Problems Provider Date History of [...] Provider Pulmicort Flexhaler 2 puffs twice 120units [place] 03/24/2015 90mcg/Act daily Ziggy Peguero MD Aerosol Hydrochlorothiazide 1 by mouth 90tabs Mark Chisholm 10/27/2012 50mg every day Ziggy Peguero MD Tablets Zestril take 1 tablet 90tabs Phan Mark 10mg Tablets daily Ziggy Peguero MD Ventolin HFA Inhale 2 Puffs Unknown 108(90Base) Every 4 To 6 mcg/Act Aerosol Hours as Needed For Shortness Of [place]... Clobetasol Propionate Apply A Thin Unknown 0.05% Layer To Right Cream [place] Twice A Day For Up To 2 Weeks as Need Metronidazole Unknown 1% Gel Medications Administered in Office Medication SIG Qnty Indications Ordering Provider Date Allergy Injection 2 Or More Abdon Duque MD 07/28/2019 Injection Allergy Injection 2 Or More Abdon [...] CPT Code Status Date Vaccine Lot # [id number] Given 08/22/2017 Pneumococcal Vaccine 2Yrs Or Older [id number] 49167 Given 05/14/2017 Fluarix Quadrivalent, Preservative Free 0.5mL 44322 Given 04/01/2016 Influenza Virus Vaccine, Quadrivalent, Slit Virus, [place] Use 43224 Given 03/20/2015 Fluarix Quadrivalent, Preservative Free 0.5mL 29130 Given 11/08/2013 Pneumococcal Conjugate Vaccine 13 Valent For Intramuscular Use Q2037 Given 05/18/2013 Influenza Vaccine (Fluvirin) 3 Years Of Age Or Older Q2037 Given 03/12/2012 Influenza Vaccine (Fluvirin) 3 Years Of Age Or Older 81564 Given 03/12/2012 Zoster Shingles Vaccine For Subcutaneous Injection 69388 Given 06/12/2011 Tetanus, Diphtheria Toxoids/Acellular Pertussis Vaccine 7 Or > 34507 Given 06/12/2011 Tetanus, Diphtheria Toxoids/Acellular Pertussis Vaccine 7 Or > Q2038 Given 05/16/2011 Influenza Vaccine (Fluzone) Administered Age 3 And Older 39898 Given 01/31/2010 Influenza Virus Split 3 Yrs And Above For Intramuscular Use 01582 Given 05/16/2009 Influenza Vaccine, Pandemic Formulation, H1N1 83314 Given 02/25/2007 Pneumococcal Vaccine 2Yrs Or Older [id number] Vital Signs Date Vital Result Comment 02/17/2019 [...] Information Available Procedures Date Code Description Status 07/28/2019 84002 Allergy Injection 2 Or More Completed 07/14/2019 88721 Allergy Injection 2 Or More Completed 06/07/2019 44192 Allergy Injection 2 Or More Completed 05/03/2019 07369 Allergy Injection 2 Or More Completed 03/31/2019 06084 Allergy Antigens Single Or Multiple Completed 03/19/2019 43854 Allergy Injection 2 Or More Completed 02/17/2019 97718 Allergy Injection 2 Or More Completed 02/03/2019 60161 Allergy Injection 2 Or More Completed Medical Devices Description No Information Available Encounters Type Date Location Provider Dx Diagnosis Office Visit 02/17/2019 [place] Angelica AbdulIrwin J30.1 Allergic rhinitis due 2:30p Fenstermacher, RPA-C to pollen J30.89 Other allergic rhinitis J47.9 Bronchiectasis, uncomplicated Assessments Date Code Description Provider 07/28/2019 J30.1 Allergic rhinitis due to pollen Abdon Duque MD 07/28/2019 J30.89 Other allergic rhinitis Abdon Duque MD 07/14/2019 J45.41 Moderate persistent asthma with Abdon [...] Duque MD 02/17/2019 J30.89 Other allergic rhinitis Angelica Vasquez RPA-C 02/17/2019 J30.89 Other allergic rhinitis Abdon Duque MD 02/17/2019 J47.9 Bronchiectasis, uncomplicated Angelica Vasquez, RPA-C 02/03/2019 J45.41 Moderate persistent asthma with Abdon Duque MD (acute) exacerbation 02/03/2019 J30.1 Allergic rhinitis due to pollen Abdon Duque MD 02/03/2019 J30.89 Other allergic rhinitis Abdon Duque MD Plan of Treatment 02/17/2019 - Angelica Vasquez [facility]-CJ30.1 Allergic rhinitis due to pollenComments:Allergic rhinitis well controlled. Patient has had an excellent response to immunotherapy. Patient is no longer requiring use of daily allergy medications. Continuation of allergy injections is recommended.Follow up:1 year.J30.89 Other allergic aszvgmvhK94.9 Bronchiectasis, uncomplicatedComments: Patient with history of bronchiectasis. Immune evaluation was normal. Patient will continue follow-up with Dr. Stevens. Functional Status Description No Information Available Mental Status Description No Information Available Referrals Description No Information Available
--- OUTSIDE RECORDS SUMMARY | 2019-07-31 09:46 | XMS REPORT | Continuity of Care Document ---
:1935 External Reference #:[id number] Author Name David Allen, OD Address [address] [place] [address] Care Team Providers Name Role Phone Phan LUIS, Warner - Internal Care Team Information Coal Sample Tester [phone] Medicine Problems Active Problems Provider Date Vitreous degeneration David Jimenez O.D. Onset: 11/09/2014 Lens Replaced By Other Means David Jimenez O.D. Onset: 11/09/2014 Presbyopia David Jimenez O.D. 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 Onset: 12/2014 extraction of cataract Social History Type Date Description Comments Sex Unknown ETOH Use Occasionally consumes alcohol Tobacco Use Start: Unknown End: Patient is a former smoker Quit 06/08/1971 Unknown Smoking Status Reviewed: 06/03/19 Patient is a former smoker Quit 06/08/1971 Allergies, Adverse Reactions, Alerts Active Allergies Reaction Severity Comments Date Penicillin 11/09/2014 Chloramphenicol 11/09/2014 Sulfa Antibiotics 11/09/2014 Hay Fever 03/03/2019 Medications Active Medications SIG Qnty Indications Ordering Date Provider Lumigan one drop every 5ml David Allen, 01/20/2019 0.01% Solution night at OD bedtime both eyes Zestriprince Chisholm MD, 10mg Tablets Warner Hydrochlorothiazide Unknown 25mg Tablets Qvar Phan LUIS, 80mcg/Act Aerosol Warner Tamsulosin HCL Take 1 Capsule Unknown 0.4mg Capsules By Mouth Every Evening Tizanidine HCL Take 1 To 2 Unknown 2mg Tablets Tablets By Mouth Twice A Day as Needed For Muscle Spasms Ketoconazole Unknown 2% Shampoo Immunizations Description No Information Available Vital Signs Date Vital Result Comment 06/03/2019 2:40pm Intraocular Pressure Right Eye 16 mmHg Intraocular Pressure Left Eye 15 mmHg 03/03/2019 3:21pm Intraocular Pressure Right Eye 17 mmHg Intraocular Pressure Left Eye 15 mmHg Results Description No Information Available Procedures Date Code Description Status 01/20/2019 96989 Oct, Optic Nerve Completed 01/20/2019 30678 Visual Field Exam Extended, Unilateral Or Bilateral Completed 01/20/2019 74420 Eye Exam Est Intermediate Completed 01/13/2019 71757 Remove Secondary Cataract, Laser (Yag) Completed Medical Devices Description No Information Available Encounters Type Date Location Provider Dx Diagnosis Office Visit 06/03/2019 Main Office David Allen, OD 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, bilateral, mild stage Office Visit 03/03/2019 Main Office David Allen, OD Z96.1 Presence of 3:15p intraocular lens 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, bilateral, 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 Assessments Date Code Description Provider 06/03/2019 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, bilateral, mild David Allen, OD stage 03/03/2019 Z96.1 Presence of intraocular lens David Allen, OD 03/03/2019 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, bilateral, mild David Allen, OD stage 03/03/2019 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 Plan of Treatment Future Appointment(s):11/02/2019 1:30 pm - David Allen, OD at Main [id number] - David Allen OD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, bilateral, mild stageFollow up:IOP stable CPm lumigan QHS OU RTO 10/2019 full, sooner PRN Functional Status Description No Information Available Mental Status Description No Information Available Referrals Description No Information Available
--- OUTSIDE RECORDS SUMMARY | 2019-07-31 09:46 | XMS REPORT | Continuity of Care Document ---
:1935 External Reference #:[id number] Author Name Silvina Tinoco NP (transmitted by agent of provider Cristina Ferguson) Address [address] [facility], [address] [place] [id number] Care Team Providers Name Role Phone Mariola Parekh MD - Orthopaedic Care Team Information Finance Mgr Surgery Chantel Groves MD - Dermatology Care Team Information Finance Mgr Nadira Mares M.D. - Family Medicine Care Team Information Finance Mgr Problems Active Problems Provider Date Malignant tumor of urinary bladder Warner Chisholm M.D.,FACP Onset: 2017 Note: large, superficial Impaired fasting glycaemia Warner Chisholm M.D.,FACP Onset: 2008 Benign essential hypertension Warner Chisholm M.D.,FACP Onset: 2008 Bronchiolectasis Warner Chisholm M.D.,FACP Onset: 2008 Irritable bowel syndrome Warner Chisholm M.D.,FACP Onset: 12/09/2014 Note: w/ diarrhea/incontinence Allergic rhinitis Ena Lawrence MD Onset: 03/12/2016 Rosacea Warner Chisholm M.D.,FACP Onset: 04/01/2016 Right bundle branch block Warner Chisholm M.D.,FACP Onset: 04/01/2016 Note: with LAFB History of cholecystectomy Warner Chisholm M.D.,FACP Onset: 07/30/2017 Acquired short bowel syndrome Warner Chisholm M.D.,FACP Onset: 08/20/2017 Social History Type Date Description Comments Sex Unknown Tobacco Use Start: Unknown End: Former Cigarette Smoker 30 P-Y Unknown ETOH Use 07/30/2017 Occasionally consumes once or twice a liquor month Recreational Drug Use Denies Drug Use Tobacco Use Start: Unknown End: Patient is a former Quit 06/08/1971 Unknown smoker Smoking Status Reviewed: 07/12/19 Patient is a former Quit 06/08/1971 smoker Exercise Type/Frequency Exercises regularly Swimming 3Xweek Allergies, Adverse Reactions, Alerts Active Allergies Reaction Severity Comments Date Penicillins rash 2008 Chloramphenicol 03/10/2014 Sulfa rash 2008 Azithromycin generic only apparently 05/16/2011 Ramipril diarrhea 06/16/2019 Enalapril Diarrhea 07/07/2019 Medications Active Medications SIG Qnty Indications Ordering Date Provider Maryjane 1 drop each eye Krista 0.01% Solution every day MD Rafael 9 Tizanidine HCL 1-2 tabs 2 x/day 90tabs M54.41 Nadira Mares, 2mg Tablets by mouth as 9 needed for muscle spasms Benefiber 2 tbsp bid Warner Heredia Powder Elías Chisholm M.D.,FACP Dulcolax 1 po every 3rd Warner Heredia 5mg Tablets DR day if no BM Elías Chisholm M.D.,FACP Flutter use as 1units J47.9 Ena Device instructed twice MD Melinda 6 a day Pulmicort Flexhaler 2 puffs twice 120units Silvina 90mcg/Act daily YESENIA Tinoco 5 Aerosol Hydrochlorothiazide take 2 tablets 180tabs Kishore Heredia 25mg by mouth every Brand, MCatarina 3 Tablets day Ventolin HFA inhale 2 puffs 18gm Silvina 108(90Base) every 4 to 6 YESENIA Tinoco 0 mcg/Act Aerosol hours as needed for shortness of jeniffer... Align 1 by mouth every Unknown 4mg Capsules day ( taken 0 occasional) Metronidazole apply two times Unknown 0.75% Cream a day as needed 0 for facial rash Triamcinolone Acetonide apply to Rash On Unknown 0.1% Shins twice a 0 Cream day for Up To 2 Weeks as Needed Zestril 1 by mouth every 90tabs Kishore D. 10mg Tablets day Brand, M.D. 0 History Medications Enalapril Maleate 1 by mouth every 30tabs Kishore D. Brand, 06/23/2019 - 10mg day M.D. 07/07/2019 Tablets Lisinopril take 1 tablet by 90tabs Kishore D. Brand, 05/26/2019 - 10mg Tablets mouth daily M.D. 05/26/2019 Ramipril 1 by mouth every 90caps Kishore D. Brand, 05/26/2019 - 10mg Capsules day M.D. 06/16/2019 Immunizations CPT Code Status Date Vaccine Reaction Lot # [id number] Given 02/24/2018 Influenza Virus Vaccine, [id number] Quadrivalent, Split, Preservative Free 14033 Given 05/14/2017 Influenza Virus Vaccine, NO REACTION NOTED [id number] Quadrivalent, Split, Preservative Free 54632 Given 04/01/2016 Influ Virus Vaccine, no reaction, pt [id number] Quadrivalent, Split Virus, [place] [address] Given 03/20/2015 Influenza Virus Vaccine, [id number] Quadrivalent, Split, Preservative Free 79409 Given 11/08/2013 Pneumococcal Conjugate [id number] Vaccine 13 Valent For Intramuscular Use Q2037 Given 05/18/2013 Fluvirin Im 3Yrs And Older [id number] Q2037 Given 03/12/2012 Fluvirin Im 3Yrs And Older [id number] 17008 Given 03/12/2012 Zoster (Zostavax) [id number] 49588 Given 06/12/2011 Tdap - Tetanus/Diptheria/Acellular Pertussis 98224 Given 06/12/2011 Tdap - [id number] Tetanus/Diptheria/Acellular Pertussis Q2038 Given 05/16/2011 Fluzone Vaccine 20528 Given 01/31/2010 Influenza Virus 3Yrs & Over [id number] 38748 Given 05/16/2009 Influenza Virus Vaccine, [id number] Pandemic Formulation 97937 Given 02/25/2007 Pneumonia Vaccine Vital Signs Date Vital Result Comment 07/12/2019 9:47am Height 64 inches 5'4" Weight 174.75 lb Heart Rate 90 /min BP Systolic 124 mmHg BP Diastolic 64 mmHg O2 % BldC Oximetry 96 % BMI (Body Mass Index) 30.0 kg/m2 03/25/2019 1:49pm Height 64 inches 5'4" Weight 170.44 lb Heart Rate 64 /min BP Systolic Sitting 115 mmHg BP Diastolic Sitting 75 mmHg Body Temperature 97.5 F O2 % BldC Oximetry 97 % BMI (Body Mass Index) 29.3 kg/m2 Results Test Acquired Date Facility Test Result H/L Range Note Basic Metabolic 06/02/2019 [facility] Sodium 137 mmol/L Normal 135-[address] [place] [address] [phone] Potassium 4.6 mmol/L Normal 3.5-5.0 Chloride 100 mmol/L Low 101-111 Co2 Carbon Dioxide 30 mmol/L Normal 22-32 Anion Gap 7 mmol/L Normal 2-11 Glucose 116 mg/dL High 70-100 Blood Urea Nitrogen 17 mg/dL Normal 6-24 Creatinine 1.24 mg/dL High 0.67-1.17 BUN/Creatinine Ratio 13.7 Normal 8-20 Calcium 9.2 mg/dL Normal 8.6-10.3 Egfr Non- 55.5 >60 Egfr 67.2 >60 1 Laboratory test 06/02/2019 [facility] Hemoglobin A1c 5.8 % High 4.0-5.[address] (Glyco HGB) [place] [address] [phone] 1 Because ethnic data is not always readily available, this report includes an eGFR for both -Americans and non- Americans. The National Kidney Disease Education Program (NKDEP) does not endorse the use of the MDRD equation for patients that are not between the ages of 18 and 70, are , have extremes of body size, muscle mass, or nutritional status, or are non- or non-. According to the National Kidney Foundation, irrespective of diagnosis, the stage of the disease is based on the level of kidney function: Stage Description GFR(mL/min/1.73 m(2)) 1 Kidney damage with normal or decreased GFR 90 2 Kidney damage with mild decrease in GFR 60-89 3 Moderate decrease in GFR 30-59 4 Severe decrease in GFR 15-29 5 Kidney failure <15 (or dialysis) 2 Therapeutic target for the treatment of diabetes mellitus patients is <7% HBA1C, and in selective patients <6.0%. Please refer to [place] Diabetes Association diabetic care guidelines for further information. Procedures Date Code Description Status 01/05/2009 42021520 Colonoscopy Completed Medical Devices Description No Information Available Encounters Type Date Location Provider Dx Diagnosis Office Visit 07/12/2019 [facility] Silvina J47.9 Bronchiectasis, 10:00a [facility] YESENIA Tinoco uncomplicated [facility] J45.909 Unspecified asthma, uncomplicated Office Visit 03/25/2019 2:00p [facility] Internal Krista I10 Essential ( primary) Medicine - Keagan Hall MD hypertension Assessments Date Code Description Provider 07/12/2019 J47.9 Bronchiectasis, uncomplicated Silvina Tinoco NP 07/12/2019 J45.909 Unspecified asthma, uncomplicated Silvina Tinoco NP 03/25/2019 I10 Essential (primary) hypertension Krista Hall MD Plan of Treatment Future Appointment(s):09/24/2019 2:20 pm - Nadira Mares MD at [facility] Internal Medicine - [facility]10/26/2019 3:30 pm - Ena Lawrence MD at [facility]07/12/2019 - Silvina Tinoco NPJ47.9 Bronchiectasis, uncomplicatedFollow up:Pt would like to keep upcoming OVRecommendations: Continue using your pulmicort twice per day If you are feeling chest tightness, use your Ventolin inhaler Continue using your flutter valve to loosen your kwsvwE98.909 Unspecified asthma, uncomplicated Functional Status Description No Information Available Mental Status Description No Information Available Referrals Description No Information Available
--- OUTSIDE RECORDS SUMMARY | 2019-07-31 09:46 | XMS REPORT | Continuity of Care Document ---
:1935 External Reference #:[id number] Author Name Injection 1 (transmitted by agent of provider Shruthi Hadley) Address [address], [address] [place] [address] Care Team Providers Name Role Phone Mark Chisholm MD - Hospitalist Care Team Information Resident Service Coordinator Problems Active Problems Provider Date History of [...] MD Tablets Zestril take 1 tablet 90tabs [place], Mark 10mg Tablets daily Ziggy Peguero MD [...] 10/28/2018 Injection Allergy Injection 2 Or More Abodn Duque MD 10/07/2018 Injection Allergy Injection 2 [...] CPT Code Status Date Vaccine Lot # [id number] Given 08/22/2017 Pneumococcal Vaccine 2Yrs Or Older [id number] 08831 Given 05/14/2017 Fluarix Quadrivalent, Preservative Free 0.5mL 17099 Given 04/01/2016 Influenza Virus Vaccine, Quadrivalent, Slit Virus, [place] Use [address]44 Given 03/20/2015 Fluarix Quadrivalent, Preservative Free 0.5mL 01979 Given 11/08/2013 Pneumococcal Conjugate Vaccine 13 Valent For Intramuscular Use Q2037 Given 05/18/2013 Influenza Vaccine (Fluvirin) 3 Years Of Age Or Older Q2037 Given 03/12/2012 Influenza Vaccine (Fluvirin) 3 Years Of Age Or Older 23173 Given 03/12/2012 Zoster Shingles Vaccine For Subcutaneous Injection 28292 Given 06/12/2011 Tetanus, Diphtheria Toxoids/Acellular Pertussis Vaccine 7 Or > 75143 Given 06/12/2011 Tetanus, Diphtheria Toxoids/Acellular Pertussis Vaccine 7 Or > Q2038 Given 05/16/2011 Influenza Vaccine (Fluzone) Administered Age 3 And Older 03774 Given 01/31/2010 Influenza Virus Split 3 Yrs And Above For Intramuscular Use 95225 Given 05/16/2009 Influenza Vaccine, Pandemic Formulation, H1N1 16027 Given 02/25/2007 Pneumococcal Vaccine 2Yrs Or Older [id number] Vital Signs Date Vital Result Comment 02/17/2019 [...] Available Procedures Date Code Description Status 07/14/2019 58742 Allergy Injection 2 Or More Completed 06/07/2019 14375 Allergy Injection 2 Or More Completed 05/03/2019 12041 Allergy Injection 2 Or More Completed 03/31/2019 20383 Allergy Antigens Single Or Multiple Completed 03/19/2019 24381 Allergy Injection 2 Or More Completed 02/17/2019 45125 Allergy Injection 2 Or More Completed 02/03/2019 20968 Allergy Injection 2 Or More Completed 01/20/2019 56976 Allergy Injection 2 Or More Completed Medical Devices Description No Information Available Encounters Type Date Location Provider Dx Diagnosis [place] J30.1 Allergic rhinitis due 2:30p Fenstermacheapril RPA-C to pollen J30.89 Other allergic rhinitis J47.9 Bronchiectasis, uncomplicated Assessments Date Code Description Provider 07/14/2019 J30.1 Allergic rhinitis due to pollen [...] Duque MD 02/17/2019 J47.9 Bronchiectasis, uncomplicated Angelica Vasquez RPA-C 02/03/2019 J45.41 Moderate persistent asthma with [...] Appointment(s):07/28/2019 1:35 pm - Injection 1 at [id number]/17/2019 - Angelica Vasquez [facility]-CJ30.1 Allergic rhinitis due to pollenComments: Allergic rhinitis well controlled. Patient has had an excellent response to immunotherapy. Patient is no longer requiring use of daily allergy medications. Continuation of allergy injections is recommended.Follow up:1 year.J30.89 Other allergic nnsxxzotT56.9 Bronchiectasis, uncomplicatedComments:Patient with history of bronchiectasis. Immune evaluation was normal. Patient will continue follow-up with Dr. Stevens. Functional Status Description No Information Available Mental Status Description No Information Available Referrals Description No Information Available
--- OUTSIDE RECORDS SUMMARY | 2019-07-31 09:46 | XMS REPORT | Continuity of Care Document ---
:1935 External Reference #:[id number] Author Name Abdon Duque MD (transmitted by agent of provider Rayne Stafford) Address [address] [address] [place] [address] Care Team Providers Name Role Phone Mark Chisholm MD - Hospitalist Care Team Information Car Park Attendant Problems Active Problems Provider Date History of cholecystectomy Mark Chisholm MD Onset: 07/30/2017 Rosacea Mark Chisholm MD Onset: 04/01/2016 Right bundle branch block Makr Chisholm MD Onset: 04/01/2016 Allergic rhinitis Ena [...] CPT Code Status Date Vaccine Lot # 46434 Given 08/22/2017 Pneumococcal Vaccine 2Yrs Or Older 6530-8260-84 [id number] 78630 Given 05/14/2017 Fluarix Quadrivalent, Preservative Free 0.5mL 87067 Given 04/01/2016 Influenza Virus Vaccine, Quadrivalent, Slit Virus, Im Use 16495 Given 03/20/2015 Fluarix Quadrivalent, Preservative Free 0.5mL 56386 Given 11/08/2013 Pneumococcal Conjugate Vaccine 13 Valent For Intramuscular Use Q2037 Given 05/18/2013 Influenza Vaccine (Fluvirin) 3 Years Of Age Or Older Q2037 Given 03/12/2012 Influenza Vaccine (Fluvirin) 3 Years Of Age Or Older 95937 Given 03/12/2012 Zoster Shingles Vaccine For Subcutaneous Injection 76002 Given 06/12/2011 Tetanus, Diphtheria Toxoids/Acellular Pertussis Vaccine 7 Or > 79894 Given 06/12/2011 Tetanus, Diphtheria Toxoids/Acellular Pertussis Vaccine 7 Or > Q2038 Given 05/16/2011 Influenza Vaccine (Fluzone) Administered Age 3 And Older 65689 Given 01/31/2010 Influenza Virus Split 3 Yrs And Above For Intramuscular Use 56868 Given 05/16/2009 Influenza Vaccine, Pandemic Formulation, H1N1 40430 Given 02/25/2007 Pneumococcal Vaccine 2Yrs Or Older 8719-2383-66 Vital Signs Date Vital Result Comment 02/17/2019 [...] Available Procedures Date Code Description Status 07/28/2019 44290 Allergy Injection 2 Or More Completed 07/14/2019 91391 Allergy Injection 2 Or More Completed 06/07/2019 86210 Allergy Injection 2 Or More Completed 05/03/2019 22016 Allergy Injection 2 Or More Completed 03/31/2019 45304 Allergy Antigens Single Or Multiple Completed 03/19/2019 96137 Allergy Injection 2 Or More Completed 02/17/2019 72268 Allergy Injection 2 Or More Completed 02/03/2019 97100 Allergy Injection 2 Or More Completed Medical Devices Description No Information Available Encounters Type Date Location Provider Dx Diagnosis Office Visit 02/17/2019 Jayshree Bonilla J30.1 Allergic rhinitis due 2:30p Fenstermacher, RPA-C to pollen J30.89 Other allergic rhinitis J47.9 Bronchiectasis, uncomplicated Assessments Date Code Description Provider 07/28/2019 J45.41 Moderate persistent asthma with Abdon Duque MD (acute) exacerbation 07/28/2019 J30.1 Allergic rhinitis due to pollen [...] J30.1 Allergic rhinitis due to pollen Angelica Whytestermcheyanne, RPA -C 02/17/2019 J30.1 Allergic rhinitis due to pollen Abdon Duque MD 02/17/2019 J30.89 Other allergic rhinitis Angelica SIrwin Whytestermacher, RPA-C 02/17/2019 J30.89 Other allergic rhinitis Abdon Duque MD 02/17/2019 J47.9 Bronchiectasis, uncomplicated Angelica SIrwin Whytestermjerryr, RPA-C 02/03/2019 J45.41 Moderate persistent asthma with Abdon Duque MD (acute) exacerbation 02/03/2019 J30.1 Allergic rhinitis due to pollen Abdon Duque MD 02/03/2019 J30.89 Other allergic rhinitis Abdon Duque MD Plan of Treatment 02/17/2019 - Angelica Whytestermcheyanne, RPA-CJ30.1 Allergic rhinitis due to pollenComments:Allergic rhinitis well controlled. Patient has had an excellent response to immunotherapy. Patient is no longer requiring use of daily allergy medications. Continuation of allergy injections is recommended.Follow up:1 year.J30.89 Other allergic knztynixY18.9 Bronchiectasis, uncomplicatedComments: Patient with history of bronchiectasis. Immune evaluation was normal. Patient will continue follow-up with Dr. Stevens. Functional Status Description No Information Available Mental Status Description No Information Available Referrals Description No Information Available
--- OUTSIDE RECORDS SUMMARY | 2019-07-31 09:46 | XMS REPORT | Continuity of Care Document ---
:1935 External Reference #:[id number] Author Name Abdon Duque MD (transmitted by agent of provider Rayne Stafford) Address [address] 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 Problems Active Problems Provider Date History of [...] 09/09/2018 Injection Allergy Injection 2 Or More bAdon Duque MD 08/26/2018 Injection Allergy Injection 2 Or More Abdon Duque MD 08/12/2018 Injection Allergy Injection 2 Or More Abdon Duque MD 08/05/2018 Injection Allergy Injection 2 Or More Abdon Duque MD 07/29/2018 Injection Allergy Injection 2 Or More Abdno Duque MD 07/22/2018 Injection Allergy Injection 2 [...] CPT Code Status Date Vaccine Lot # 53685 Given 08/22/2017 Pneumococcal Vaccine 2Yrs Or Older 4001-1212-48 [id number] 85118 Given 05/14/2017 Fluarix Quadrivalent, Preservative Free 0.5mL 34048 Given 04/01/2016 Influenza Virus Vaccine, Quadrivalent, Slit Virus, [place] Use 60036 Given 03/20/2015 Fluarix Quadrivalent, Preservative Free 0.5mL 03986 Given 11/08/2013 Pneumococcal Conjugate Vaccine 13 Valent For Intramuscular Use Q2037 Given 05/18/2013 Influenza Vaccine (Fluvirin) 3 Years Of Age Or Older Q2037 Given 03/12/2012 Influenza Vaccine (Fluvirin) 3 Years Of Age Or Older 10915 Given 03/12/2012 Zoster Shingles Vaccine For Subcutaneous Injection 21793 Given 06/12/2011 Tetanus, Diphtheria Toxoids/Acellular Pertussis Vaccine 7 Or > 62601 Given 06/12/2011 Tetanus, Diphtheria Toxoids/Acellular Pertussis Vaccine 7 Or > Q2038 Given 05/16/2011 Influenza Vaccine (Fluzone) Administered Age 3 And Older 41036 Given 01/31/2010 Influenza Virus Split 3 Yrs And Above For Intramuscular Use 89717 Given 05/16/2009 Influenza Vaccine, Pandemic Formulation, H1N1 24991 Given 02/25/2007 Pneumococcal Vaccine 2Yrs Or Older 2459-9176-49 Vital Signs Date Vital Result Comment 02/17/2019 [...] Available Procedures Date Code Description Status 07/28/2019 92132 Allergy Injection 2 Or More Completed 07/14/2019 75446 Allergy Injection 2 Or More Completed 06/07/2019 14313 Allergy Injection 2 Or More Completed 05/03/2019 86204 Allergy Injection 2 Or More Completed 03/31/2019 45032 Allergy Antigens Single Or Multiple Completed 03/19/2019 49902 Allergy Injection 2 Or More Completed 02/17/2019 09570 Allergy Injection 2 Or More Completed 02/03/2019 79905 Allergy Injection 2 Or More Completed Medical [...] injections is recommended.Follow up:1 year.J30.89 Other allergic cmxaepubP67.9 Bronchiectasis, uncomplicatedComments: Patient with history of bronchiectasis. Immune evaluation was normal. Patient will continue follow-up with Dr. Stevens. Functional Status Description No Information Available Mental Status Description No Information Available Referrals Description No Information Available
--- OUTSIDE RECORDS SUMMARY | 2019-07-31 09:46 | XMS REPORT | Continuity of Care Document ---
:1935 External Reference #:[id number] Author Name Abdon Duque MD (transmitted by agent of provider Rayne Stafford) Address [address] 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 Problems Active Problems Provider Date History of [...] CPT Code Status Date Vaccine Lot # 91256 Given 08/22/2017 Pneumococcal Vaccine 2Yrs Or Older 1031-7387-72 [id number] 82700 Given 05/14/2017 Fluarix Quadrivalent, Preservative Free 0.5mL 02881 Given 04/01/2016 Influenza Virus Vaccine, Quadrivalent, Slit Virus, [place] Use 82478 Given 03/20/2015 Fluarix Quadrivalent, Preservative Free 0.5mL 96436 Given 11/08/2013 Pneumococcal Conjugate Vaccine 13 Valent For Intramuscular Use Q2037 Given 05/18/2013 Influenza Vaccine (Fluvirin) 3 Years Of Age Or Older Q2037 Given 03/12/2012 Influenza Vaccine (Fluvirin) 3 Years Of Age Or Older 89299 Given 03/12/2012 Zoster Shingles Vaccine For Subcutaneous Injection 04070 Given 06/12/2011 Tetanus, Diphtheria Toxoids/Acellular Pertussis Vaccine 7 Or > 35466 Given 06/12/2011 Tetanus, Diphtheria Toxoids/Acellular Pertussis Vaccine 7 Or > Q2038 Given 05/16/2011 Influenza Vaccine (Fluzone) Administered Age 3 And Older 64497 Given 01/31/2010 Influenza Virus Split 3 Yrs And Above For Intramuscular Use 58172 Given 05/16/2009 Influenza Vaccine, Pandemic Formulation, H1N1 29970 Given 02/25/2007 Pneumococcal Vaccine 2Yrs Or Older 9699-5974-69 Vital Signs Date Vital Result Comment 02/17/2019 [...] Available Procedures Date Code Description Status 07/14/2019 95275 Allergy Injection 2 Or More Completed 06/07/2019 00981 Allergy Injection 2 Or More Completed 05/03/2019 02157 Allergy Injection 2 Or More Completed 03/31/2019 93079 Allergy Antigens Single Or Multiple Completed 03/19/2019 53818 Allergy Injection 2 Or More Completed 02/17/2019 15721 Allergy Injection 2 Or More Completed 02/03/2019 97881 Allergy Injection 2 Or More Completed 01/20/2019 10656 Allergy Injection 2 Or More Completed Medical [...] Appointment(s):07/28/2019 1:35 pm - Injection 1 at [id number]/17/2019 - Angelica Vasquez RPA-CJ30.1 Allergic rhinitis due to pollenComments: Allergic rhinitis well controlled. Patient has had an excellent response to immunotherapy. Patient is no longer requiring use of daily allergy medications. Continuation of allergy injections is recommended.Follow up:1 year.J30.89 Other allergic fpdnqihbW44.9 Bronchiectasis, uncomplicatedComments:Patient with history of bronchiectasis. Immune evaluation was normal. Patient will continue follow-up with Dr. Stevens. Functional Status Description No Information Available Mental Status Description No Information Available Referrals Description No Information Available
--- OUTSIDE RECORDS SUMMARY | 2019-07-31 09:46 | XMS REPORT | Continuity of Care Document ---
:1935 External Reference #:[id number] Author Name Abdon Duque MD (transmitted by agent of provider Rayne Stafford) Address [address] 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 [phone] Problems Active Problems Provider Date History of [...] CPT Code Status Date Vaccine Lot # 98667 Given 08/22/2017 Pneumococcal Vaccine 2Yrs Or Older 7838-2821-59 [id number] 83127 Given 05/14/2017 Fluarix Quadrivalent, Preservative Free 0.5mL 76172 Given 04/01/2016 Influenza Virus Vaccine, Quadrivalent, Slit Virus, Im Use 14226 Given 03/20/2015 Fluarix Quadrivalent, Preservative Free 0.5mL 54732 Given 11/08/2013 Pneumococcal Conjugate Vaccine 13 Valent For Intramuscular Use Q2037 Given 05/18/2013 Influenza Vaccine (Fluvirin) 3 Years Of Age Or Older Q2037 Given 03/12/2012 Influenza Vaccine (Fluvirin) 3 Years Of Age Or Older 21939 Given 03/12/2012 Zoster Shingles Vaccine For Subcutaneous Injection 93912 Given 06/12/2011 Tetanus, Diphtheria Toxoids/Acellular Pertussis Vaccine 7 Or > 44585 Given 06/12/2011 Tetanus, Diphtheria Toxoids/Acellular Pertussis Vaccine 7 Or > Q2038 Given 05/16/2011 Influenza Vaccine (Fluzone) Administered Age 3 And Older 54978 Given 01/31/2010 Influenza Virus Split 3 Yrs And Above For Intramuscular Use 49809 Given 05/16/2009 Influenza Vaccine, Pandemic Formulation, H1N1 14214 Given 02/25/2007 Pneumococcal Vaccine 2Yrs Or Older 0280-6728-85 Vital Signs Date Vital Result Comment 02/17/2019 [...] Available Procedures Date Code Description Status 07/28/2019 83161 Allergy Injection 2 Or More Completed 07/14/2019 88058 Allergy Injection 2 Or More Completed 06/07/2019 33600 Allergy Injection 2 Or More Completed 05/03/2019 84547 Allergy Injection 2 Or More Completed 03/31/2019 54628 Allergy Antigens Single Or Multiple Completed 03/19/2019 35071 Allergy Injection 2 Or More Completed 02/17/2019 89830 Allergy Injection 2 Or More Completed 02/03/2019 00924 Allergy Injection 2 Or More Completed Medical [...] MD 03/19/2019 J30.89 Other allergic rhinitis Abdon Duuqe MD 02/17/2019 J45.41 Moderate persistent asthma with [...] injections is recommended.Follow up:1 year.J30.89 Other allergic eygaccvpE79.9 Bronchiectasis, uncomplicatedComments: Patient with history of bronchiectasis. Immune evaluation was normal. Patient will continue follow-up with Dr. Stevens. Functional Status Description No Information Available Mental Status Description No Information Available Referrals Description No Information Available
[2019-07-31 10:14] LABS: Urine Appearance Clear; Urine Bilirubin Negative (Negative); Urine Blood 3+ (Negative); Urine Glucose Negative (Negative); Urine Ketones Negative (Negative); Urine Nitrite Negative (Negative); Urine Protein 1+(30 mg/dL) (Negative); Urine Specific Gravity 1.008 (1.010-1.030); Urine Urobilinogen Negative (Negative)
[2019-07-31 10:16] LABS: Urine Bacteria Absent (Absent); Urine Color Red; Urine Red Blood Cell 3+(>10/hpf) (Absent); Urine White Blood Cell 3+(>20/hpf) (Absent)
[2019-07-31] MEDS ORDERED: NS 0.9% 1000 ML** 1,000 ML IV ONE (10:27)
[2019-07-31 10:44] LABS: ABS Eosinophils 0.1 10^3/ul (0-0.6); ABS Monocytes 0.5 10^3/ul (0-0.8); ABS Neutrophils 7.4 10^3/ul (1.5-7.7); Eosinophil % 1.2 %; Hematocrit 41 % (42-52); Hemoglobin 14.2 g/dL (14.0-18.0); Lymphocyte % 11.5 %; Mean Corpuscular HGB Conc 35 g/dL (31-36); Mean Corpuscular Hemoglobin 32 pg (27-31); Mean Corpuscular Volume 93 fL (80-94); Mean Platelet Volume 7.5 fL (7.4-10.4); Platelet Count 155 10^3/uL (150-450); Red Blood Count 4.41 10^6 /uL (4.18-5.48); Red Cell Distribution Width 13 % (10-15); White Blood Count 9.1 10^3/uL (3.5-10.8)
[2019-07-31 11:00] LABS: ALT 16 U/L (7-52); Albumin 3.9 g/dL (3.2-5.2); Albumin/Globulin Ratio 1.4 (1-3); Alkaline Phosphatase 40 U/L (34-104); BUN/Creatinine Ratio 18.8 (8-20); Blood Urea Nitrogen 21 mg/dL (6-24); CO2 Carbon Dioxide 29 mmol/L (22-32); Calcium 8.8 mg/dL (8.6-10.3); Chloride 97 mmol/L (101-111); EGFR African American 75.4 (>60); EGFR Non-African American 62.3 (>60); Globulin 2.7 g/dL (2-4); Glucose 116 mg/dL (70-100); Sodium 132 mmol/L (135-145); Total Protein 6.6 g/dL (6.4-8.9)
[2019-07-31] MEDS ORDERED: Iohexol 300* (CONTRAST) 10 ML SDV IV ONE (11:08)
[2019-07-31 11:09] LABS: Anion Gap 6 mmol/L (2-11)
[2019-07-31 11:51] LABS: Activated Partial Thrombo Time 34.9 seconds (26.0-38.0); INR 1.03 (0.82-1.09)
[2019-07-31 11:59] LABS: Potassium Redraw 4.4 mmol/L (3.5-5.0)
[2019-07-31] MEDS ORDERED: Furosemide IV* 10 MG/ML 2 ML VIAL (20 MG) IV SLOW PU ONE (12:51)
[2019-07-31 13:19] VITALS: BP 127/80
--- NOTE | 2019-07-31 13:19 | CONS ---
CC: Dr. Nadira Mares; Ricardo Schuster MD * UROLOGY CONSULTATION: DATE OF CONSULT: 07/31/19 REQUESTING PHYSICIAN: Dr. Mcfadden, in the emergency department. DIAGNOSES: 1. History of recurrent superficial bladder cancer. 2. Gross hematuria. HISTORY OF PRESENT ILLNESS: Leonidas Dubois is an 84-year-old former smoker, who had initially been diagnosed with high-grade noninvasive bladder cancer in November of 2017. He has undergone transurethral resections of bladder tumors in November 2017, June 2018, and most recently October 2018, and at all times has been known to have noninvasive although high-grade bladder cancer. He recently started having gross painless hematuria about 24 hours ago and presented to the emergency department where he was evaluated. He denies any flank pain or dysuria or fever. He is not currently on any anticoagulants. His past smoking history is significant for a 80-fkne-dtlz-year smoking history , which he quit around 1971. PAST MEDICAL HISTORY: Consists of: 1. Recurrent superficial bladder cancer. 2. COPD. 3. Hypertension. 4. BPH. PAST SURGICAL HISTORY: Significant for: 1. Transurethral resection of bladder tumors on 3 separate occasions as outlined above. 2. Surgery for diverticular abscess in 2006. 3. Small bowel resection for small bowel obstruction in 1982. 4. Left lung lower lobe resection in 1971 for bronchiectasis. 5. Mastoidectomy. 6. Appendectomy in 1938. MEDICATIONS ON ADMISSION: 1. Pulmicort inhaler 1 puff b.i.d. 2. Hydrochlorothiazide 50 mg daily. 3. Lisinopril 10 mg daily. 4. Flomax 0.4 mg daily. ALLERGIES AND INTOLERANCES: PENICILLIN, SULFA, CHLORAMPHENICOL, and AZITHROMYCIN. FAMILY HISTORY: Negative for bladder cancer. SOCIAL HISTORY: Smoking history: He has a 90-lgjd-pbca-year smoking history and quit in 1971. REVIEW OF SYSTEMS: He is otherwise in fairly good health and is fairly active. He denies any chest pain or shortness of breath. He has no history of diabetes mellitus or any other major systemic illness. PHYSICAL EXAM: Reveals a pleasant, healthy-appearing elderly gentleman, who is comfortable. Blood pressure is 152/81, pulse 58 per minute and regular, respirations 16 per minute, temperature 97.6, oxygen saturation 99% on room air. Cardiovascular exam: Regular rate and rhythm. S1, S2. Lungs are clear bilaterally. Abdomen is soft without flank tenderness. DIAGNOSTIC STUDIES/LAB DATA: Review of labs reveals a white count of 9.1, hemoglobin and hematocrit are normal at 14.2 and 41 with a platelet count of 155 ,000. Review of electrolytes reveals a sodium of 132, potassium is still pending, BUN and creatinine are normal at 21 and 1.1, and a glucose of 160. Urinalysis shows red urine with 3+ white blood cells and 3+ red blood cells. I also personally examined the last 3 urine samples that had been collected in the emergency department and to me it looks like there is some lightening of the hematuria with the most recent urine sample being more light pink rather than red. CT urogram is currently pending at the time of this dictation. IMPRESSION AND PLAN: I suspect that he has a recurrent bladder tumor accounting for the gross hematuria and will likely require cystoscopy and transurethral resection of the bladder tumor sometime in the next few days. I am hoping that this can be done as an outpatient unless the CT urogram shows any significant ureteral obstruction in which case he may need to be admitted and have this done within the next 24 to 36 hours. I will follow him after the CT urogram and then make a decision about the timing of the transurethral resection of what I suspect is probably a recurrent bladder tumor. [id number]/[facility] #: [id number] MTDSudhir
== END 2019-07-31 13:18 | disposition home or self-care (01) ==
LOC: ED 09:12
DX: R31.9 Hematuria, unspecified (principal); I10 Essential (primary) hypertension; C67.9 Malignant neoplasm of bladder, unspecified; J44.9 Chronic obstructive pulmonary disease, unspecified; N40.0 Benign prostatic hyperplasia without lower urinary tract symptoms; Z88.2 Allergy status to sulfonamides; Z87.891 Personal history of nicotine dependence; Z79.899 Other long term (current) drug therapy; Z88.0 Allergy status to penicillin; Z88.8 Allergy status to other drugs, medicaments and biological substances
CPT/HCPCS: 36415; 74178; 76377; 80053; 81003; 81015; 85025; 85610; 85730; 87086; 96361; 96374; 99284; J1940; Q9967

== ENCOUNTER 2019-08-03 11:21 | Day surgery (SDC) | payer MEDICARE, OTHER ==
[~2019-08-03 11:21] MED LIST changes: +Famotidine IV* 10 MG/ML 2 ML (20 mg) IV ONE; +Lactated Ringers 1000 ML Bag* 1,000 ML IV SCH
[2019-08-03] MEDS ORDERED: Acetaminophen TAB* 325 MG PO PRN (11:53)
[2019-08-03] MEDS ORDERED: Naloxone* 0.4 MG/ML 1 ML VIAL IV PRN (11:53)
[2019-08-03] MEDS ORDERED: HYDROmorphone INJ1* 1 MG/ML SYRINGE IV PRN (11:53)
[2019-08-03] MEDS ORDERED: oxyCODONE TAB* 5 MG TAB PO PRN (11:53)
[2019-08-03] MEDS ORDERED: DiMENhydriNATE IV* 50 MG/ML VIAL IV PUSH PRN (11:53)
[2019-08-03] MEDS ORDERED: Famotidine IV* 10 MG/ML 2 ML (20 mg) ONE (11:58)
[2019-08-03] MEDS ORDERED: Levofloxacin 500 MG IVPREMIX(* 500 MG/100 ML BAG IVPB ONE (11:58)
[2019-08-03] MEDS ORDERED: Iohexol 180 (CONTRAST) 10 ML SDV IV ONE (13:33)
[2019-08-03] MEDS ORDERED: fentaNYL* 50 MCG/ML 2 ML VIAL (100 MCG VIAL) ONE ×2 (13:55→14:37)
[2019-08-03] MEDS ORDERED: Propofol* 10 MG/ML 20 ML BTL ONE (14:29)
[2019-08-03] MEDS ORDERED: DiMENhydriNATE IV* 50 MG/ML VIAL ONE (14:29)
[2019-08-03] MEDS ORDERED: EPHEDrine (Pressors)* 50 MG/ML VIAL ONE (14:29)
[2019-08-03] MEDS ORDERED: Ondansetron INJ* 2 MG/ML VIAL ONE (14:29)
[2019-08-03] MEDS ORDERED: Succinylcholine* 20 MG/ML 10 ML VIAL ONE (14:29)
[2019-08-03] MEDS ORDERED: Dexamethasone IV* 4 MG/ML 1 ML (4 MG) ONE (14:29)
[2019-08-03] MEDS ORDERED: HYDROmorphone INJ1* 1 MG/ML SYRINGE ONE (15:23)
[2019-08-03 16:16] VITALS: BP 162/80
[2019-08-03] MEDS ORDERED: Furosemide IV* 10 MG/ML 2 ML VIAL (20 MG) ONE (16:22)
--- NOTE | 2019-08-03 16:44 | OP ---
CC: Dr. Nadira Mares; Dr. Kishore Gaitan * DATE OF OPERATION: 08/03/19 - [facility] DATE OF : 33 SURGEON: Ricardo Schuster MD. ANESTHESIOLOGIST: Dr. Pacheco. ANESTHESIA: General. PRE-OP DIAGNOSES: 1. Gross hematuria. 2. 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 POST-OP DIAGNOSES: 1. Gross hematuria. 2. 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 OPERATIVE PROCEDURES: 1. Cystoscopy. 2. Left retrograde pyelogram. 3. Left ureteroscopy. 4. Left pyeloscopy. 5. Fulguration of left renal tumor (appearance consistent with low-grade transitional cell carcinoma). 6. Left stent insertion. COMPLICATIONS: None. BLOOD LOSS: Minimal. STENT USED: 8 T[place] stent, left ureter. INDICATIONS: Leonidas Dubois is an 84-year-old gentleman with a history of recurrent bladder tumors. He was recently evaluated for gross hematuria and on CT urogram was noted to have a lesion suspicious for transitional cell carcinoma involving the upper pole collecting system on the left side. He is now being brought in for an attempted fulguration to control the bleeding from the tumor. OPERATIVE FINDINGS: Papillary tumor rising from left upper pole calyx with appearance consistent with low-grade superficial transitional cell carcinoma. POSTOPERATIVE CONDITION: Stable. DESCRIPTION OF PROCEDURE: After induction of general anesthesia, the patient was placed on the operative table in dorsal lithotomy position. Sequential compression devices were in place and functioning. Initial cystoscopy revealed a normal appearing urethra, a mildly enlarged prostate. The bladder was carefully examined. There was no evidence of any recurrent bladder tumors. Left retrograde pyelogram revealed a persistent filling defect in the area of the upper pole calyx in the left collecting system. Washings were obtained from the upper pole and sent for cytology. Next, a 6 Togolese semirigid ureteroscope was introduced and advanced under direct vision. The entire distal, mid, and proximal left ureter were visualized and were normal. The ureteroscope was then carefully advanced into the left renal pelvis and then directed towards the upper pole. In the upper pole calyx, I could see a papillary tumor, which had an appearance consistent with low-grade transitional cell neoplasm. Bleeding was noted from within the area of the calyx where this tumor was. The tumor appeared to be filling up the whole calyx. Using a pediatric Bugbee electrocautery, the entire visible part of the tumor was carefully cauterized with 30 ledesma coagulating current. At the end of the procedure, lot of the tumor appear to have sloughed off and the hemostasis appeared satisfactory. The remainder of the calyces, the part that could be visualized with the semirigid appeared normal. The ureteroscope was carefully withdrawn under direct vision and an 8 [place] stent was introduced and positioned under fluoroscopy with good proximal and distal positioning obtained. The patient tolerated the procedure satisfactorily and was transferred back to the recovery area in stable condition. [id number]/[facility] #: [id number] [facility]
== END 2019-08-03 17:00 | disposition home or self-care (01) ==
LOC: OR 11:21
PROVIDERS: ATTEND Urology
DX: C64.2 Malignant neoplasm of left kidney, except renal pelvis (principal); R31.0 Gross hematuria; Z85.51 Personal history of malignant neoplasm of bladder; Z87.891 Personal history of nicotine dependence; I10 Essential (primary) hypertension; K21.9 Gastro-esophageal reflux disease without esophagitis; K58.9 Irritable bowel syndrome, unspecified; M19.90 Unspecified osteoarthritis, unspecified site; J47.9 Bronchiectasis, uncomplicated; R05 Cough
CPT/HCPCS: 74420; 88112; 88305; 88341; 88342; 88360; C2625; J0330; J1100; J1170; J1240; J1940; J1956; J2405; J2704; J3010

== ENCOUNTER 2020-03-19 16:31 | Inpatient (IN) ==
[2020-03-19] MEDS ORDERED: NS 0.9% 1000 ml BAG 1,000 ML IV ONE (18:52)
[2020-03-19 19:13] LABS: Activated Partial Thrombo Time 28.7 seconds (26.0-38.0); INR 1.04 (0.82-1.09)
[2020-03-19 19:25] LABS: ALT 12 U/L (7-52); Albumin/Globulin Ratio 1.3 (1-3); Alkaline Phosphatase 45 U/L (34-104); BUN/Creatinine Ratio 16.9 (8-20); Blood Urea Nitrogen 23 mg/dL (6-24); C Reactive Protein 1.93 mg/L (<8.01); CO2 Carbon Dioxide 25 mmol/L (22-32); Calcium 8.8 mg/dL (8.6-10.3); Chloride 102 mmol/L (101-111); EGFR African American 60.3 (>60); EGFR Non-African American 49.8 (>60); Glucose 101 mg/dL (70-100); Sodium 135 mmol/L (135-145)
[2020-03-19 19:27] LABS: Anion Gap 8 mmol/L (2-11)
[2020-03-19 19:28] LABS: ABS Basophils 0.1 10^3/ul (0-0.2); ABS Eosinophils 0.2 10^3/ul (0-0.6); ABS Lymphocytes 1.1 10^3/ul (1.0-4.8); ABS Monocytes 0.6 10^3/ul (0-0.8); ABS Neutrophils 5.3 10^3/ul (1.5-7.7); Eosinophil % 2.6 %; Hematocrit 39 % (42-52); Hemoglobin 13.2 g/dL (14.0-18.0); Lymphocyte % 15.4 %; Mean Corpuscular HGB Conc 34 g/dL (31-36); Mean Corpuscular Hemoglobin 32 pg (27-31); Mean Corpuscular Volume 93 fL (80-94); Mean Platelet Volume 6.7 fL (7.4-10.4); Platelet Count 164 10^3/uL (150-450); Red Blood Count 4.15 10^6 /uL (4.18-5.48); Red Cell Distribution Width 14 % (10-15); White Blood Count 7.3 10^3/uL (3.5-10.8)
[2020-03-19] MEDS ORDERED: Iodixanol (CONTRAST) 320 MG/ML 100 ML SDV IV ONE (20:47)
[2020-03-19 23:07] LABS: Potassium Redraw 4.4 mmol/L (3.5-5.0)
[2020-03-20] MEDS ORDERED: Ondansetron 4 mg VIAL 2 MG/ML 2 ml VIAL IV PRN (00:24)
[2020-03-20] MEDS ORDERED: Morphine 2 MG/ML SYRINGE IV PRN (00:24)
[2020-03-20] MEDS: NS 0.9% 1000 ml BAG 1,000 ML IV SCH ×3 (03:32→23:09)
[2020-03-20] MEDS ORDERED: Heparin 5000 UNITS/ML 1 mL VIAL SUBCUT SCH (06:00)
[2020-03-20 06:22] LABS: ABS Eosinophils 0.2 10^3/ul (0-0.6); ABS Lymphocytes 0.9 10^3/ul (1.0-4.8); ABS Monocytes 0.6 10^3/ul (0-0.8); ABS Neutrophils 5.6 10^3/ul (1.5-7.7); Eosinophil % 2.5 %; Hematocrit 38 % (42-52); Hemoglobin 12.9 g/dL (14.0-18.0); Lymphocyte % 12.4 %; Mean Corpuscular HGB Conc 34 g/dL (31-36); Mean Corpuscular Hemoglobin 32 pg (27-31); Mean Corpuscular Volume 93 fL (80-94); Mean Platelet Volume 6.9 fL (7.4-10.4); Platelet Count 151 10^3/uL (150-450); Red Blood Count 4.05 10^6 /uL (4.18-5.48); Red Cell Distribution Width 14 % (10-15); White Blood Count 7.3 10^3/uL (3.5-10.8)
[2020-03-20 06:39] LABS: BUN/Creatinine Ratio 14.8 (8-20); Calcium 8.5 mg/dL (8.6-10.3); EGFR African American 68.3 (>60); EGFR Non-African American 56.5 (>60)
[2020-03-20] MEDS ORDERED: Mometasone 220 MCG MDI INH PRN (17:45)
[2020-03-20] MEDS ORDERED: Albuterol HFA INHALER 8 gm MDI INH PRN (17:47)
[2020-03-20] MEDS ORDERED: Latanoprost 0.005% 2.5 ml BTL BOTH EYES SCH (18:00)
[2020-03-21] MEDS ORDERED: NS 0.9% 1000 ml BAG 1,000 ML IV SCH (00:11)
[2020-03-21 05:50] LABS: ABS Eosinophils 0.3 10^3/ul (0-0.6); ABS Lymphocytes 0.9 10^3/ul (1.0-4.8); ABS Monocytes 0.5 10^3/ul (0-0.8); ABS Neutrophils 4.6 10^3/ul (1.5-7.7); Eosinophil % 3.9 %; Hematocrit 37 % (42-52); Hemoglobin 12.5 g/dL (14.0-18.0); Lymphocyte % 14.8 %; Mean Corpuscular HGB Conc 34 g/dL (31-36); Mean Corpuscular Hemoglobin 32 pg (27-31); Mean Corpuscular Volume 93 fL (80-94); Nucleated Red Blood Cells % 0.1; Platelet Count 141 10^3/uL (150-450); Red Blood Count 3.94 10^6 /uL (4.18-5.48); Red Cell Distribution Width 14 % (10-15); White Blood Count 6.3 10^3/uL (3.5-10.8)
[2020-03-21 06:05] LABS: Anion Gap 6 mmol/L (2-11); BUN/Creatinine Ratio 10.9 (8-20); Blood Urea Nitrogen 11 mg/dL (6-24); CO2 Carbon Dioxide 26 mmol/L (22-32); Chloride 107 mmol/L (101-111); EGFR African American 84.9 (>60); EGFR Non-African American 70.2 (>60); Glucose 96 mg/dL (70-100); Potassium 3.7 mmol/L (3.5-5.0); Sodium 139 mmol/L (135-145)
[2020-03-21 06:20] LABS: % Iron Saturation 23 % (15-55); Iron 66 ug/dL (50-212); Total Iron Binding Capacity 284 mcg/dL (250-450); Transferrin 203 mg/dL (203-362); Unsaturated Iron Binding < 269 ug/dL
[2020-03-21 06:40] LABS: Ferritin 73.7 ng/mL (24-336)
[2020-03-21] MEDS ORDERED: Influenza VAC *QUAD* 2020-21* 0.5 ML SYRINGE IM ONE (09:00)
[2020-03-21 11:15] VITALS: BP 136/66
== END 2020-03-21 12:05 | disposition home or self-care (01) | DRG 389 ==
LOC: EDSEX → ED 16:31 → MERGE 03-20 00:24 → SSU 03-20 00:24
PROVIDERS: ADMIT Hospitalist; ATTEND Internal Medicine